=== PATIENT | male | born 1955 | race Caucasian/White ===

== ENCOUNTER 2018-04-12 10:38 | Observation (INO) ==
--- NOTE | 2018-04-12 11:01 | Emergency Department Note ---
ED Disposition Clinical Impression: Near syncope, Toe fracture, left, Chest pain Disposition: Admitted as Observation Condition on Discharge: Good Instructions: DI for Syncope in Adults (Fainting), DI for Syncope in Children ( Fainting) Referrals: Chencho Clarke MD [Primary Care Provider] - - Critical Care Critical Care Time: No Attestation: On , the high probability of a clinically significant, sudden or life threatening deterioration of the following system(s) required my full and direct attention, intervention and personal management. The time I documented below is in addition to time spent performing reported procedures but includes the following listed in this critical care notation. Medical Decision Making - Medical Records MR Comment: patient with chest pain and near syncope. frequent pacs. admit, rule out. ekg monitor tech. ddimer normal. cxr, ct head nad per radiology, fx toe per radiology, call out to k[facility]al for [facility] for admission. - Jose Inquiry Pt receiving controlled substance: No Vital Signs: 04/12/18 11:06 Temperature 97.8 F Temperature Source Temporal Artery Scan Respiratory Rate 18 Blood Pressure [Right Arm] 137/79 Blood Pressure Mean [Right Arm] 98 Blood Pressure Source [Right Arm] Automatic Cuff Blood Pressure Position [Right Arm] Sitting 02 Sat by Pulse Oximetry 100 Oxygen Delivery Method Room Air - Lab Data Lab Results 04/12/18 11:00: WBC 3.5 L, RBC 2.95 L, Hgb 11.8 L, Hct 36.8 L, MCV 124.7 H, MCH 40.1 H*, MCHC 32.2, RDW 15.5, Plt Count 179, MPV 8.0, Neut % (Auto) 44.5, Lymph % (Auto) 44.9, [place] % (Auto) 4.3, Eos % (Auto) 5.8, Baso % (Auto) 0.6, Neut # ( Auto) 1.6 L, Lymph # (Auto) 1.6, [place] # (Auto) 0.2, Eos # (Auto) 0.2, Baso # ( Auto) 0.0 04/12/18 11:00: Sodium 144, Potassium 4.0, Chloride 108 H, Carbon Dioxide 28, Anion Gap 8.2, BUN 18, Creatinine 1.00, Estimated Creat Clear 76, Estimated GFR 76, Est GFR ( Amer) 92, Glucose 125 H, Fasting Glucose 125 H, Troponin I < 0.02 04/12/18 11:00: D-Dimer 245 04/12/18 11:00: Total Bilirubin 0.7, Direct Bilirubin 0.2, Indirect Bilirubin 0.5, AST 24, ALT 25, Alkaline Phosphatase 63, Total Protein 7.1, Albumin 3.9 04/12/18 11:00: Lipase 52 L Result diagrams: 04/12/18 11:00 04/12/18 11:00 Orders (Tests/Meds): ORDERS Category Date Time Status Urinalysis and Microscopic Stat Lab 04/12/18 10:51 Ordered - ECG Data Tracing #1 I reviewed this ECG and interpreted as documented below: (ER EKG read by myself shows normal sinus rhythm rate of 74, normal axis, pac, no QT prolongation, nonspecific EKG) General Adult HPI - General Chief complaint: Chest Pain Stated complaint: soa Time Seen by Provider: 04/12/18 10:54 - History of Present Illness HPI narrative: Patient states onset at 9 AM he had chest tightness sweating shortness of breath and lightheadedness and near syncopal episode he denied any falls or head trauma he denies any chest pain now. No complaint of headache nausea or vomiting or fevers or chills no cough. He also states that he dropped an object on his left great toe 2 weeks ago but did not get it checked out and he thinks his toes may be broken. Has moderate achy pain there worse with ambulation no radiation - Related Data Allergies Allergy/AdvReac Type Severity Reaction Status Date / Time INGREDIENT: NO KNOWN - NO Allergy Unknown Uncoded 10/28/17 14:52 KNOWN DRUG ALLERGY [facility] History I have reviewed the patient's past medical history: Yes ROS Obtained: Yes All systems reviewed & no additional complaints Physical Exam General Appearance: Nontoxic Head: Normocephalic, without obvious abnormality, atraumatic. Eyes: conjunctiva/corneas clear ENT: Mucous membranes moist. Neck: No jugular venous distention. Cardiac: regular rate and rhythm Lungs: rhonchi to auscultation bilaterally Abdomen: Nontender, Nondistended, positive bowel sounds, no rebound : No CVA tenderness Extremities: no edema Musculoskeletal: No chest wall tenderness Left foot has tenderness at the second and first toes and some ecchymosis of the second and first some bilateral calf tenderness Skin: No rashes or lesions to exposed skin. Neurologic: Alert. No gross focal deficits Psychiatric: Normal affect - General General appearance: alert - Respiratory Respiratory exam: Present: normal lung sounds bilaterally - Cardiovascular Cardiovascular exam: Present: regular rate - Neurological Exam Neurological exam: Present: alert
[2018-04-12 11:08] LABS: Basophils % 0.6 % (0.1-2.0); Eosinophils # 0.2 K/mm3 (0.0-0.4); Eosinophils % 5.8 % (0.1-12.0); Hematocrit 36.8 % (42.0-52.0); Hemoglobin 11.8 g/dL (14.1-18.0); Lymphocytes # 1.6 K/mm3 (0.7-4.5); Lymphocytes % 44.9 K/mm3 (10-50); Mean Corpuscular HGB Conc 32.2 g/dL (31.8-35.4); Mean Corpuscular Volume 124.7 fl (80-94); Monocytes # 0.2 K/mm3 (0.1-1.0); Monocytes % 4.3 % (1.7-9.3); Neutrophils # 1.6 K/mm3 (1.8-7.8); Neutrophils % 44.5 % (37.0-80.0); Platelet Count 179 K/mm3 (142-424); Red Blood Count 2.95 M/mm3 (4.60-6.20); Red Cell Distribution Width 15.5 % (11.5-17.5); White Blood Count 3.5 K/mm3 (4.8-10.8)
[2018-04-12 11:15] LABS: Mean Corpuscular Hemoglobin 40.1 pg (27.0-31.2)
[2018-04-12 11:20] LABS: Sodium 144 mmol/L (136-145)
[2018-04-12 11:21] LABS: Anion Gap 8.2 mEq/L (5-15); Blood Urea Nitrogen 18 mg/dL (7-18); Carbon Dioxide 28 mmol/L (21.0-32.0); Chloride 108 mmol/L (98-107); Glucose 125 mg/dL (74-106); Glucose,Fasting 125 mg/dL (60-105)
[2018-04-12 11:24] LABS: Albumin Level 3.9 gm/dL (3.4-5.0); Bilirubin,Direct 0.2 mg/dL (0.0-0.2); Bilirubin,Indirect 0.5 mg/dL (0.0-0.9); Bilirubin,Total 0.7 mg/dL (0.2-1.0); Total Protein,Serum 7.1 gm/dL (6.4-8.2)
--- NOTE | 2018-04-12 16:44 | Progress Note ---
Internal Medicine - PN: Subj *Date: 04/12/18 *Time: 16:39 Interval history: This 62-year-old white male with known coronary artery disease and peripheral vascular disease had a near syncopal episode this morning. He started feeling faint about 830 this morning while he was visiting at a friend's house. He did not pass out. He felt that it might be from a rhythm problem. His daughter checked his heart rhythm about 9 AM and found it to be irregular. Patient presented in the emergency room. He did have some PACs in the emergency room. Cardiac enzymes were negative. His director facilities maintenance is Dr. Elba Ramey. He has had multiple cardiac catheterizations, he thinks perhaps 10 to 12. He states that he has had 2 coronary artery stents. He has had myocardial infarction in 1991 in 2006. Quit smoking in 1996. He does have peripheral vascular disease and had atherectomy of his left leg this year. He takes aspirin Crestor and Plavix. He had surgery for tic douloureux in the . Incidentally he had an injury recently to his left great toe and x-ray in the emergency room revealed a fracture. Exam Vital signs and Labs for Last 24 Hours: Temp Pulse Resp BP Pulse Ox 98.0 F 63 18 103/70 100 04/12/18 14:26 04/12/18 14:26 04/12/18 14:26 04/12/18 14:26 04/12/18 14:47 Laboratory Results - last 24 hr 04/12/18 11:00: WBC 3.5 L, RBC 2.95 L, Hgb 11.8 L, Hct 36.8 L, MCV 124.7 H, MCH 40.1 H*, MCHC 32.2, RDW 15.5, Plt Count 179, MPV 8.0, Neut % (Auto) 44.5, Lymph % (Auto) 44.9, [place] % (Auto) 4.3, Eos % (Auto) 5.8, Baso % (Auto) 0.6, Neut # ( Auto) 1.6 L, Lymph # (Auto) 1.6, [place] # (Auto) 0.2, Eos # (Auto) 0.2, Baso # ( Auto) 0.0 04/12/18 11:00: Sodium 144, Potassium 4.0, Chloride 108 H, Carbon Dioxide 28, Anion Gap 8.2, BUN 18, Creatinine 1.00, Estimated Creat Clear 76, Estimated GFR 76, Est GFR ( Amer) 92, Glucose 125 H, Fasting Glucose 125 H, Troponin I < 0.02 04/12/18 11:00: D-Dimer 245 04/12/18 11:00: Total Bilirubin 0.7, Direct Bilirubin 0.2, Indirect Bilirubin 0.5, AST 24, ALT 25, Alkaline Phosphatase 63, Total Protein 7.1, Albumin 3.9 04/12/18 11:00: Lipase 52 L I & O for Last 24 hours: Intake & Output 04/10/18 04/11/18 04/12/18 04/13/18 11:59 11:59 11:59 11:59 Weight 150 lb 163 lb 5 oz - Constitutional no acute distress - *Routine Respiratory Exam Present: decreased breath sounds - *Routine Cardiovascular Exam Present: RRR, murmur (2/6 at the left sternal border) - *Routine Abdominal Exam Present: soft. Absent: tenderness - *Routine Extremities Exam Absent: edema Comments: Discoloration and tenderness of the left great toe. See x-ray report. - *Routine Neurological Exam Present: alert, oriented X3 Assessment and Plan (1) Near syncope Current visit: Yes Status: Acute Category: Medical Code(s): R55 - Syncope and collapse (2) Cardiac dysrhythmia, unspecified Current visit: Yes Status: Acute Category: Medical Code(s): I49.9 - Cardiac arrhythmia, unspecified (3) Peripheral vascular disease Current visit: Yes Status: Acute Category: Medical Code(s): I73.9 - Peripheral vascular disease, unspecified (4) Coronary artery disease Current visit: Yes Status: Acute Category: Medical Code(s): I25.10 - Atherosclerotic heart disease of [place] coronary artery without angina pectoris (5) History of coronary artery stent placement Current visit: Yes Status: Acute Category: Surgical Code(s): Z95.5 - Presence of coronary angioplasty implant and graft (6) Toe fracture, left Current visit: Yes Status: Acute Category: Medical Code(s): S92.912A - Unspecified fracture of left toe(s), initial encounter for closed fracture - Assessment and plan all Dx Assessment and Plan for all problems:: Monitor. Echocardiogram in the morning.
[2018-04-12 18:00] LABS: Microscopic, Urine URINE MICROSCOPIC (MICROSCOPIC)
[2018-04-12 18:01] LABS: Appearance,Urine CLEAR (Clear); Bilirubin,Urine Negative (Negative); Blood, Urine Negative (Negative); Color,Urine YELLOW (Yellow); Glucose,Urine (UA) Negative (Negative); Ketones,Urine Negative (Negative); Leukocyte Esterase,Urine Negative (Negative); Protein,Urine Negative (Negative)
[2018-04-12 18:04] LABS: Amorphous Sediment,Urine Trace /lpf
--- NOTE | 2018-04-13 07:27 | Pharmacy Consult Notes ---
[facility] Pharmacy VTE Monitoring - Patient Demographics Admission date: 04/12/18 Report Date: 04/13/18 Time: 07:27 Allergies/Adverse Reactions: Patient Allergies No Known Allergies Allergy (Unverified 04/12/18 13:54) Height: 1.78 m Weight: 74.077 kg Patient Problems: Current Active Problems Near syncope (Acute) Toe fracture, left (Acute) Chest pain (Acute) Cardiac dysrhythmia, unspecified (Acute) Peripheral vascular disease (Acute) Coronary artery disease (Acute) History of coronary artery stent placement (Acute) - VTE Risk Labs: VTE Related Lab Results Hgb 11.8 g/dL (14.1-18.0) L 04/12/18 11:00 Hct 36.8 % (42.0-52.0) L 04/12/18 11:00 Plt Count 179 K/mm3 (142-424) 04/12/18 11:00 BUN 18 mg/dL (7-18) 04/12/18 11:00 Creatinine 1.00 mg/dL (0.70-1.30) 04/12/18 11:00 Estimated Creat Clear 76 mL/min (0-300) 04/12/18 11:00 VTE Score: 3 VTE Risk Level: Low Risk - Prophylaxis VTE Prophylaxis Ordered?: Yes Types of VTE Prophylaxis: TEDS Knee High Location of Applied Device: Bilateral Lower Extremeties - VTE Diagnosis Confirmed Treatment or plan recommended: Continue Current Treatment
--- NOTE | 2018-04-13 09:17 | History & Physical Report ---
*Admission Date: 04/12/18 <MorganNehaDiaen 04/13/18 09:17> *Chief complaint: Near syncope <MorganNehaDiane 04/13/18 09:35> *History of present illness: Mr. Gutierrez is a 62-year-old white male with known coronary artery disease and peripheral vascular disease experienced a near syncopal episode yesterday morning. He started feeling faint about 830 in the morning while he was visiting at a friend's house. He just started using some snuff. He did not pass out. He felt that it might be from a rhythm problem. His daughter checked his heart rhythm about 9 AM and found it to be irregular. Patient presented in the emergency room. He did have some PACs in the emergency room. Cardiac enzymes were negative. His engineering mgr is Dr. Elba Ramey. He has had multiple cardiac catheterizations, he thinks perhaps to 12. He states that he has had 2 coronary artery stents. He has had myocardial infarction in 1991 in 2006. Quit smoking in 1996. He does have peripheral vascular disease and had atherectomy of his left leg this year. He takes aspirin Crestor and Plavix. This a.m. patient denies chest pain and states he did not have chest pain yesterday. He also denies shortness of breath. He thinks the episode is from using the snuff. <Diane Morgan 04/13/18 09:35> [facility] History Medical History: Reports:: Arrhythmia, Atherosclerotic Heart Disease, Coronary Artery Disease, Hyperlipidemia, Myocardial Infarction, Palpitations, Peripheral Vascular Disease Denies:: Cancer, Diabetes Mellitus Type 1, Diabetes Mellitus Type 2, Gastroesophageal Reflux Disease(GERD), MRSA <Diane Morgan 04/13/18 09:35> Other Medical History: Reports: Cataracts, Sinus Problems <Diane Morgan 02/25 09:17> Other Surgeries: Yes: Cardiac Catheterization <Diane Morgan 04/13/18 09:17> Amputation: No <Diane Morgan 04/13/18 09:17> Fractures: Yes <Diane Morgan 04/13/18 09:17> Comment: Directional atherectomy left ascending 1991; coronary artery stent 1996 ; face neuralgia ; left atherectomy left leg December 2017 <Diane Morgan 04/13/18 09:35> - *Social History Educational Level: Completed High School <Neha Morganhy 04/13/18 09:17> Smoking Status: Former smoker <Neha Morganhy 04/13/18 09:17> Tobacco Type: cigarettes, smokeless tobacco <Neha Morganhy 04/13/18 09:17> Smoking End Date: Continues to dip snuff <EddieDiane 04/13/18 09:35> Alcohol Intake: never <Neha Morganhy 04/13/18 09:17> Occupational Status: retired <Neha Morganhy 04/13/18 09:17> Housing: house <Neha Morganhy 04/13/18 09:17> Household Members: spouse <EddieDiane 04/13/18 09:17> - Psychiatric History Expresses thoughts of harming self/others: None <Neha Morganhy 04/13/18 09: 17> Suicide Plan Description: No Plan <Neha Morganhy 04/13/18 09:17> *Family Hx:: Cancer, Coronary Artery Disease, Diabetes, Heart Attack, Hyperlipidemia, Hypertension, Stroke <Neha Morganhy 04/13/18 09:17> Review of Systems - Constitutional Denies body ache(s), Denies fever(s), Denies headache(s) <MorganDiane 02/25 09:35> - ENT Denies ear pain, Denies sore throat <MorganDiane 04/13/18 09:35> - *Cardiovascular Reports leg pain with activity, Reports irregular heart rhythm, Reports leg swelling, Denies chest pain, Denies shortness of breath <MorganDiane 04/13 09:35> - *Respiratory Denies chest congestion, Denies cough, Denies shortness of breath, Denies coughing up blood <MorganDiane 04/13/18 09:35> - *Gastrointestinal Denies abdominal pain, Denies change in bowel habits, Denies heartburn, Denies vomiting blood, Denies nausea, Denies vomiting <Morgan,Diane 04/13/18 09:35 > - *Genitourinary Denies difficulty urinating <EddieDiane 04/13/18 09:35> - *Musculoskeletal Reports muscle cramps, Reports tingling, Denies joint pain <Diane Morgan - 09:35> - *Neurologic Reports dizziness, Reports numbness (And legs), Reports tingling/numbness/ burning sensations (Legs), Denies headache(s) <Diane Morgan - 04/13/18 09:35> Comments: Near-syncope <Diane Morgan - 04/13/18 09:35> Meds Home Medications Medication Instructions Recorded Confirmed Type Aspirin [Aspir 81] 81 mg PO DAILY 04/12/18 04/12/18 History Clopidogrel Bisulfate [Plavix 75mg 75 mg PO DAILY 04/12/18 04/12/18 History Tab] Rosuvastatin Calcium [Crestor] 20 mg PO DAILY 04/12/18 04/12/18 History <Chencho Clarke - 04/13/18 10:21> Allergies Allergy/AdvReac Type Severity Reaction Status Date / Time No Known Allergies Allergy Unverified 04/12/18 13:54 <Chencho Clarke - 04/13/18 10:21> Exam Vital signs and Labs for Last 24 Hours: Temp Pulse Resp BP Pulse Ox 98.6 F 56 L 16 108/64 99 04/13/18 08:09 04/13/18 08:09 04/13/18 08:09 04/13/18 08:09 04/13/18 08:09 Laboratory Results - last 24 hr 04/12/18 11:00: WBC 3.5 L, RBC 2.95 L, Hgb 11.8 L, Hct 36.8 L, MCV 124.7 H, MCH 40.1 H*, MCHC 32.2, RDW 15.5, Plt Count 179, MPV 8.0, Neut % (Auto) 44.5, Lymph % (Auto) 44.9, Iron % (Auto) 4.3, Eos % (Auto) 5.8, Baso % (Auto) 0.6, Neut # ( Auto) 1.6 L, Lymph # (Auto) 1.6, Iron # (Auto) 0.2, Eos # (Auto) 0.2, Baso # ( Auto) 0.0 04/12/18 11:00: Sodium 144, Potassium 4.0, Chloride 108 H, Carbon Dioxide 28, Anion Gap 8.2, BUN 18, Creatinine 1.00, Estimated Creat Clear 76, Estimated GFR 76, Est GFR ( Amer) 92, Glucose 125 H, Fasting Glucose 125 H, Troponin I < 0.02 04/12/18 11:00: D-Dimer 245 04/12/18 11:00: Total Bilirubin 0.7, Direct Bilirubin 0.2, Indirect Bilirubin 0.5, AST 24, ALT 25, Alkaline Phosphatase 63, Total Protein 7.1, Albumin 3.9 04/12/18 11:00: Lipase 52 L 04/12/18 17:50: Urine Color Yellow, Urine Appearance Clear, Urine pH 7.0, Ur Specific [place] 1.020, Urine Protein Negative, Urine Glucose (UA) Negative, Urine Ketones Negative, Urine Blood Negative, Urine Nitrate Negative, Urine Bilirubin Negative, Urine Urobilinogen 1.0, Ur Leukocyte Esterase Negative, Ur Squamous Epith Cells 3-5, Amorphous Sediment Trace <[place],Chencho - 04/13/18 10:21> Temp Pulse Resp BP Pulse Ox 98.6 F 56 L 16 108/64 99 04/13/18 08:09 04/13/18 08:09 04/13/18 08:09 04/13/18 08:09 04/13/18 08:09 Laboratory Results - last 24 hr 04/12/18 11:00: WBC 3.5 L, RBC 2.95 L, Hgb 11.8 L, Hct 36.8 L, MCV 124.7 H, MCH 40.1 H*, MCHC 32.2, RDW 15.5, Plt Count 179, MPV 8.0, Neut % (Auto) 44.5, Lymph % (Auto) 44.9, Iron % (Auto) 4.3, Eos % (Auto) 5.8, Baso % (Auto) 0.6, Neut # ( Auto) 1.6 L, Lymph # (Auto) 1.6, Iron # (Auto) 0.2, Eos # (Auto) 0.2, Baso # ( Auto) 0.0 04/12/18 11:00: Sodium 144, Potassium 4.0, Chloride 108 H, Carbon Dioxide 28, Anion Gap 8.2, BUN 18, Creatinine 1.00, Estimated Creat Clear 76, Estimated GFR 76, Est GFR ( Amer) 92, Glucose 125 H, Fasting Glucose 125 H, Troponin I < 0.02 04/12/18 11:00: D-Dimer 245 04/12/18 11:00: Total Bilirubin 0.7, Direct Bilirubin 0.2, Indirect Bilirubin 0.5, AST 24, ALT 25, Alkaline Phosphatase 63, Total Protein 7.1, Albumin 3.9 04/12/18 11:00: Lipase 52 L 04/12/18 17:50: Urine Color Yellow, Urine Appearance Clear, Urine pH 7.0, Ur Specific [place] 1.020, Urine Protein Negative, Urine Glucose (UA) Negative, Urine Ketones Negative, Urine Blood Negative, Urine Nitrate Negative, Urine Bilirubin Negative, Urine Urobilinogen 1.0, Ur Leukocyte Esterase Negative, Ur Squamous Epith Cells 3-5, Amorphous Sediment Trace <Diane Morgan - 04/13/18 09:17> I & O for Last 24 hours: Intake & Output 04/10/18 04/11/18 04/12/18 04/13/18 11:59 11:59 11:59 11:59 Intake Total 1537 / 1537 Output Total 300 / 300 Balance 1237 / 1237 Weight 150 lb 163 lb 5 oz <[place],Chencho - 04/13/18 10:21> Intake & Output 04/10/18 04/11/18 04/12/18 04/13/18 11:59 11:59 11:59 11:59 Intake Total 1537 / 1537 Output Total 300 / 300 Balance 1237 / 1237 Weight 150 lb 163 lb 5 oz <Diane Morgan - 04/13/18 09:17> Radiology Reports for the Last 24 Hours: 04/12/2018 chest x-ray IMPRESSION: No acute finding. 04/12/2018 CT of the head IMPRESSION: 1. No acute intracranial findings. 2. Postsurgical changes with right occipital craniotomy with mild prominence of the CSF space lateral to the right cerebellar hemisphere nonspecific 04/12/2018 x-ray of the left foot. IMPRESSION: Mildly displaced transverse fracture mid shaft proximal phalanx great toe <Diane Morgan - 04/13/18 09:35> - Constitutional no acute distress <Diane Morgan 04/13/18 09:35> - *Routine HEENT Exam Head: Present: normocephalic, atraumatic <[facility] 04/13/18 09:35> Eye: Present: PERRL. Absent: conjunctival icterus, scleral injection <[facility] 04/13/18 09:35> ENT: Present: mucous membranes moist, oropharynx clear. Absent: dentition normal <[facility] 04/13/18 09:35> - *Routine Neck Exam Present: supple. Absent: carotid bruit, lymphadenopathy, thyromegaly <[facility] 04/13/18 09:35> - *Routine Respiratory Exam Present: CTA bilaterally (Anteriorly and posteriorly) <[facility] 09:35> - *Routine Cardiovascular Exam Present: RRR (Monitor showing sinus bradycardia) <[facility] 04/13/18 09: 35> - *Routine Abdominal Exam Present: soft, normoactive bowel sounds. Absent: tenderness, distended, organomegaly <[facility] 04/13/18 09:35> - *Routine Extremities Exam Present: full ROM, pulses intact, calf tenderness. Absent: edema, palpable cord <[facility] 04/13/18 09:35> Comments: Tenderness bilateral inner thighs <[facility] 04/13/18 09:35> - *Routine Neurological Exam Present: alert, oriented X3 <[facility] 04/13/18 09:35> H&P: Result - Labs Labs: Short CBC 04/12/18 Range/Units 11:00 WBC 3.5 L (4.8-10.8) K/mm3 Hgb 11.8 L (14.1-18.0) g/dL Hct 36.8 L (42.0-52.0) % Plt Count 179 (142-424) K/mm3 BMP 04/12/18 11:00 Sodium 144 Potassium 4.0 Chloride 108 H Carbon Dioxide 28 BUN 18 Creatinine 1.00 Glucose 125 H Cardiac Enzymes 04/12/18 Range/Units 11:00 Troponin I < 0.02 (0.00-0.06) ng/ml Liver Function 04/12/18 Range/Units 11:00 Total Bilirubin 0.7 (0.2-1.0) mg/dL Direct Bilirubin 0.2 (0.0-0.2) mg/dL AST 24 (15-37) U/L ALT 25 (12-78) U/L Alkaline Phosphatase 63 (46-116) U/L Albumin 3.9 (3.4-5.0) gm/dL Urine 04/12/18 Range/Units 17:50 Urine Color Yellow (Yellow) Urine Appearance Clear (Clear) Urine pH 7.0 (5.0-8.5) Ur Specific [place] 1.020 (1.005-1.030) Urine Protein Negative (Negative) Urine Glucose (UA) Negative (Negative) <TriciaChencho - 04/13/18 10:21> Short CBC 04/12/18 Range/Units 11:00 WBC 3.5 L (4.8-10.8) K/mm3 Hgb 11.8 L (14.1-18.0) g/dL Hct 36.8 L (42.0-52.0) % Plt Count 179 (142-424) K/mm3 BMP 04/12/18 11:00 Sodium 144 Potassium 4.0 Chloride 108 H Carbon Dioxide 28 BUN 18 Creatinine 1.00 Glucose 125 H Cardiac Enzymes 04/12/18 Range/Units 11:00 Troponin I < 0.02 (0.00-0.06) ng/ml Liver Function 04/12/18 Range/Units 11:00 Total Bilirubin 0.7 (0.2-1.0) mg/dL Direct Bilirubin 0.2 (0.0-0.2) mg/dL AST 24 (15-37) U/L ALT 25 (12-78) U/L Alkaline Phosphatase 63 (46-116) U/L Albumin 3.9 (3.4-5.0) gm/dL Urine 04/12/18 Range/Units 17:50 Urine Color Yellow (Yellow) Urine Appearance Clear (Clear) Urine pH 7.0 (5.0-8.5) Ur Specific [place] 1.020 (1.005-1.030) Urine Protein Negative (Negative) Urine Glucose (UA) Negative (Negative) <Diane Morgan - 04/13/18 09:17> Assessment and Plan (1) Near syncope Current visit: Yes Status: Acute Category: Medical Code(s): R55 - Syncope and collapse (2) Cardiac dysrhythmia, unspecified Current visit: Yes Status: Acute Category: Medical Code(s): I49.9 - Cardiac arrhythmia, unspecified (3) Peripheral vascular disease Current visit: Yes Status: Acute Category: Medical Code(s): I73.9 - Peripheral vascular disease, unspecified (4) Coronary artery disease Current visit: Yes Status: Acute Category: Medical Code(s): I25.10 - Atherosclerotic heart disease of [place] coronary artery without angina pectoris (5) History of coronary artery stent placement Current visit: Yes Status: Acute Category: Surgical Code(s): Z95.5 - Presence of coronary angioplasty implant and graft (6) Toe fracture, left Current visit: Yes Status: Acute Category: Medical Code(s): S92.912A - Unspecified fracture of left toe(s), initial encounter for closed fracture (7) Bilateral leg pain Current visit: Yes Status: Acute Category: Medical Code(s): M79.604 - Pain in right leg; M79.605 - Pain in left leg (8) Bilateral leg paresthesia Current visit: Yes Status: Acute Category: Medical Code(s): R20.2 - Paresthesia of skin <Chencho Clarke - 04/13/18 10:21> (1) Near syncope Current visit: Yes Status: Acute Category: Medical Code(s): R55 - Syncope and collapse (2) Cardiac dysrhythmia, unspecified Current visit: Yes Status: Acute Category: Medical Code(s): I49.9 - Cardiac arrhythmia, unspecified (3) Peripheral vascular disease Current visit: Yes Status: Acute Category: Medical Code(s): I73.9 - Peripheral vascular disease, unspecified (4) Coronary artery disease Current visit: Yes Status: Acute Category: Medical Code(s): I25.10 - Atherosclerotic heart disease of [place] coronary artery without angina pectoris (5) History of coronary artery stent placement Current visit: Yes Status: Acute Category: Surgical Code(s): Z95.5 - Presence of coronary angioplasty implant and graft (6) Toe fracture, left Current visit: Yes Status: Acute Category: Medical Code(s): S92.912A - Unspecified fracture of left toe(s), initial encounter for closed fracture (7) Bilateral leg pain Current visit: Yes Status: Acute Category: Medical Code(s): M79.604 - Pain in right leg; M79.605 - Pain in left leg (8) Bilateral leg paresthesia Current visit: Yes Status: Acute Category: Medical Code(s): R20.2 - Paresthesia of skin <Diane Morgan - 04/13/18 09:17> - Assessment and plan all Dx Assessment and Plan for all problems:: Saw patient, agree with above note. <Chencho Clarke - 04/13/18 10:21> Bilateral venous Doppler studies. KULWINDER hidalgo. Plavix restarted. Also have an echo today. Continue with cardiac monitoring. <Diane Morgan - 04/13/18 09:35>
--- NOTE | 2018-04-13 10:32 | Non-Invasive Vascular Report ---
"Venous Exam Indications: PVD 433.9. 782.3 Edema. IMPRESSIONS 1. There is no evidence of significant Reflux. 2. No evidence of deep or superficial vein thrombosis involving the right lower extremity and left lower extremity History: Bilateral lower extremity pain. Risk factors: Lifelong nonsmoker. Hypertension. Complete lower extremity venous duplex evaluation. Doppler flow study including spectral analysis, color and ac scale imaging. Location: Bedside. Patient status: Inpatient. Tables: Venous flow and imaging: + +-------+ + |Location |Overall|Flow properties | + +-------+ + |Right common femoral |Patent |Normal phasicity; spontaneous; | | | |normal augmentation; compressible| + +-------+ + |Right saphenofemoral junction|Patent |Compressible | + +-------+ + |Right profunda femoral |Patent |Compressible | + +-------+ + |Right femoral |Patent |Normal phasicity; spontaneous; | | | |normal augmentation; | | | |compressible; no reflux | + +-------+ + |Right greater saphenous |Patent |Normal phasicity; spontaneous; | | | |normal augmentation; compressible| + +-------+ + |Right popliteal |Patent |Normal phasicity; spontaneous; | | | |normal augmentation; compressible| + +-------+ + |Right posterior tibial |Patent |Compressible | + +-------+ + |Right peroneal |Patent |Compressible | + +-------+ + |Right gastrocnemius |Patent |Compressible | + +-------+ + |Right soleal |Patent |Compressible | + +-------+ + |Left common femoral |Patent |Normal phasicity; spontaneous; | | | |normal augmentation; compressible| + +-------+ + |Left saphenofemoral junction |Patent |Compressible | + +-------+ + |Left profunda femoral |Patent |Compressible | + +-------+ + |Left femoral |Patent |Normal phasicity; spontaneous; | | | |normal augmentation; compressible| + +-------+ + |Left greater saphenous |Patent |Normal phasicity; spontaneous; | | | |normal augmentation; compressible| + +-------+ + |Left popliteal |Patent |Normal phasicity; spontaneous; | | | |normal augmentation; compressible| + +-------+ + |Left posterior tibial |Patent |Compressible | + +-------+ + |Left peroneal |Patent |Compressible | + +-------+ + |Left gastrocnemius |Patent |Compressible | + +-------+ + |Left soleal |Patent |Compressible | + +-------+ + (Report amended ) Electronically signed by: Dipak Alcocer [id number]"
[2018-04-13 16:59] VITALS: BP 105/58
--- NOTE | 2018-04-13 22:32 | Discharge Summary ---
General - General Admission date:: 04/12/18 Discharge date: 04/13/18 HPI HPI: Mr. Gutierrez is a 62-year-old white male with known coronary artery disease and peripheral vascular disease experienced a near syncopal episode yesterday morning. He started feeling faint about 830 in the morning while he was visiting at a friend's house. He just started using some snuff. He did not pass out. He felt that it might be from a rhythm problem. His daughter checked his heart rhythm about 9 AM and found it to be irregular. Patient presented in the emergency room. He did have some PACs in the emergency room. Cardiac enzymes were negative. 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 He has had multiple cardiac catheterizations, he thinks perhaps to 12. He states that he has had 2 coronary artery stents. He has had myocardial infarction in 1991 in 2006. Quit smoking in 1996. He does have peripheral vascular disease and had atherectomy of his left leg this year. He takes aspirin Crestor and Plavix. This a.m. patient denies chest pain and states he did not have chest pain yesterday. He also denies shortness of breath. He thinks the episode is from using the snuff. Hospital Course Hospital Course: X-ray of the left foot showed a mildly displaced transverse fracture mid shaft proximal phalanx great toe. His head CT and CXR showed nothing acute. Bilateral venous Doppler studies were ordered. KULWINDER hose were placed. Plavix was restarted. An echo was ordered and the patient continued with cardiac monitoring. He did well throughout the day. His venous doppler of the legs was normal and his ECHO normal. He was stable to be discharged home with an outpatient cardiology f/u. Objective Vital signs: Temp Pulse Resp BP Pulse Ox 97.9 F 60 18 105/58 98 04/13/18 16:00 04/13/18 18:29 04/13/18 16:00 04/13/18 16:00 04/13/18 16:00 Narrative: - Constitutional no acute distress - *Routine HEENT Exam Head: Present: normocephalic, atraumatic Eye: Present: PERRL. Absent: conjunctival icterus, scleral injection ENT: Present: mucous membranes moist, oropharynx clear. Absent: dentition normal - *Routine Neck Exam Present: supple. Absent: carotid bruit, lymphadenopathy, thyromegaly - *Routine Respiratory Exam Present: CTA bilaterally (Anteriorly and posteriorly) - *Routine Cardiovascular Exam Present: RRR (Monitor showing sinus bradycardia) - *Routine Abdominal Exam Present: soft, normoactive bowel sounds. Absent: tenderness, distended, organomegaly - *Routine Extremities Exam Present: full ROM, pulses intact, calf tenderness. Absent: edema, palpable cord Comments: Tenderness bilateral inner thighs - *Routine Neurological Exam Present: alert, oriented X3 DS: Diagnosis - Discharge Diagnosis (1) Near syncope Status: Acute (2) Cardiac dysrhythmia, unspecified Status: Acute (3) Peripheral vascular disease Status: Acute (4) Coronary artery disease Status: Acute (5) History of coronary artery stent placement Status: Acute (6) Toe fracture, left Status: Acute (7) Bilateral leg pain Status: Acute (8) Bilateral leg paresthesia Status: Acute Discharge Plan - Patient Discharge Instructions ACTIVITY: Continue current activity DIET: continue same diet Patient Instructions: DI for Syncope in Adults (Fainting), DI for Toe Fracture - Follow up Plan Follow up with: Chencho Clarke MD [Primary Care Provider] - 04/22/18 Elba Ramey [Referring] - 1 month Disposition: Home, Self-Nursing Home Medications: Home Medications Medication Instructions Recorded Confirmed Type Aspirin [Aspir 81] 81 mg PO DAILY 04/12/18 04/12/18 History Clopidogrel Bisulfate [Plavix 75mg 75 mg PO DAILY 04/12/18 04/12/18 History Tab] Rosuvastatin Calcium [Crestor] 20 mg PO DAILY 04/12/18 04/12/18 History Prescriptions/Medication Reconciliation: Continue Clopidogrel Bisulfate [Plavix 75mg Tab] 75 mg PO DAILY Aspirin [Aspir 81] 81 mg PO DAILY Rosuvastatin Calcium [Crestor] 20 mg PO DAILY
== END 2018-04-13 18:15 | disposition home or self-care (01) ==
LOC: ER 10:38 → 2ND 10:38
PROVIDERS: ADMIT Family Medicine; ATTEND Family Medicine

== ENCOUNTER → 2018-06-25 12:08 | Outpatient (CLI) | payer BC, SELFPAY ==
--- NOTE | 2018-06-25 12:15 | XR_ITS ---
XR hand RT min 3V HISTORY: ITS.REASON: POLYARTHRALGIA ORDERING PHYSICIAN: Chencho Clarke MD PATIENT AGE: 62 years COMPARISON: None FINDINGS: No fracture or dislocation. No lytic or blastic change. There is normal mineralization.. The joint spaces are well-preserved. No significant degenerative/arthritic changes. No erosive changes evident.. There are minimal hypertrophic changes along the dorsal aspect of the DIP of the second, third, fourth, and fifth digits IMPRESSION: Minimal osteoarthritic changes of the DIPs of the second through fifth digits
--- NOTE | 2018-06-25 12:15 | XR_ITS ---
XR foot RT min 3V HISTORY: Pain ITS.REASON: POLYARTHRALGIA ORDERING PHYSICIAN: Chencho Clarke MD PATIENT AGE: 62 years COMPARISON: None FINDINGS: No fracture or dislocation. No lytic or blastic change. There is normal mineralization.. The joint spaces are well-preserved. No significant degenerative/arthritic changes. No erosive changes evident. IMPRESSION: Negative, no acute finding
--- NOTE | 2018-06-25 12:15 | XR_ITS ---
XR foot LT min 3V HISTORY: Pain ITS.REASON: POLYARTHRALGIA ORDERING PHYSICIAN: Chencho Clarke MD PATIENT AGE: 62 years COMPARISON: None FINDINGS: No fracture or dislocation. No lytic or blastic change. There is normal mineralization.. The joint spaces are well-preserved. No significant degenerative/arthritic changes. No erosive changes evident. IMPRESSION: Negative, no acute finding
--- NOTE | 2018-06-25 12:15 | XR_ITS ---
XR hand LT min 3V HISTORY: ITS.REASON: POLYARTHRALGIA ORDERING PHYSICIAN: Chencho Clarke MD PATIENT AGE: 62 years COMPARISON: None FINDINGS: No fracture or dislocation. No lytic or blastic change. There is normal mineralization.. The joint spaces are well-preserved. No significant degenerative/arthritic changes. No erosive changes evident.. Minimal hypertrophic changes along the dorsal aspect of the DIP of the second and fifth digits IMPRESSION: Minimal osteoarthritic change of the MP second and fifth digits
== END ==
PROVIDERS: PCP Family Medicine; Visit Provider Family Medicine
DX: M25.50 Pain in unspecified joint (principal)
CPT/HCPCS: 73130; 73630

== ENCOUNTER → 2020-05-22 16:11 | Outpatient (CLI) | payer BC, SELFPAY ==
--- NOTE | 2020-05-22 | XR_ITS ---
PROCEDURE: XR LUMBAR SPINE MIN 4V CLINICAL INDICATION: ACUTE LEFT SIDED LOW BACK PAIN WITHOUT SCIATICA COMPARISON: CXR CHEST(2 VIEWS-NOT PORTABLE) from 09/24/2015 FINDINGS: Minimal upper lumbar curvature convex right. No fracture or dislocation. There is mild degenerative disc disease at L3-L4. There is mild wedge configuration of T12 which had a similar appearance on a prior lateral chest radiograph. There are mildly prominent right lateral osteophytes at L1-L2 IMPRESSION: Mild degenerative changes, no acute fracture or other acute anomaly Dictated by: Dipak Alcocer MD 05/22/2020 16:51 Electronically signed by Dipak Alcocer MD in [place] 05/22/2020 16:51
== END ==
PROVIDERS: PCP Family Medicine; Visit Provider Family Medicine
DX: M54.5 Low back pain (principal)
CPT/HCPCS: 72110

== ENCOUNTER → 2021-04-12 07:59 | Outpatient (CLI) | payer BC, SELFPAY ==
[2021-04-12 08:59] LABS: Chloride 104 mmol/L (98-107); Potassium 4.4 mmoL/L (3.5-5.1); Sodium 138 mmol/L (136-145)
[2021-04-12 09:01] LABS: Alanine Aminotransferase 21 U/L (12-78); Aspartate Amino Transferase 32 U/L (17-59); Blood Urea Nitrogen 22 mg/dl (9-20); Estimated Glomerular Filt Rate 61 ml/min (>60); GFR (African American) 74 ML/MIN (>60)
[2021-04-12 09:02] LABS: Albumin Level 4.3 g/dl (3.5-5.0); Albumin/Globulin Ratio 1.3 (1.1-1.8); Alkaline Phosphatase 87 U/L (38-126); Anion Gap 12.4 mEq/L (5-15); Bilirubin,Total 0.6 mg/dl (0.2-1.3); Calcium 8.8 mg/dl (8.4-10.2); Carbon Dioxide 26 mmol/L (22.0-30.0); Chol/HDL Ratio 3.2 (1-3.5); Cholesterol 110 mg/dl (140-200); Globulin 3.4 g/dL (1.3-3.2); Glucose 126 mg/dl (74-100); HDL Cholesterol 34 mg/dl (40-60); Total Protein,Serum 7.7 g/dl (6.3-8.2); Triglycerides 166 mg/dl (30-150); VLDL Cholesterol 33 mg/dL (0-40)
== END ==
PROVIDERS: Visit Provider Nurse Practitioner Acute Care
DX: I25.10 Atherosclerotic heart disease of native coronary artery without angina pectoris (principal)
CPT/HCPCS: 36415; 80053; 80061

== ENCOUNTER → 2022-07-18 16:04 | Outpatient (CLI) | payer MEDICARE, BC, SELFPAY | PROVIDERS: PCP Family Medicine; Visit Provider Physician Assistant | DX: R06.09 Other forms of dyspnea (principal); D64.9 Anemia, unspecified | CPT/HCPCS: 36415; 86850 ==

== ENCOUNTER 2022-07-19 08:32 | Outpatient (CLI) | payer MEDICARE, BC, SELFPAY ==
[2022-07-19] VITALS (20 sets, daily range): BP systolic 92–127; BP diastolic 44–68; PULSE 53–70; RESP 18; TEMP 36.4–36.7; O2SAT 99–100; BMI 25.8
[2022-07-19 09:24] LABS: Occult Blood,Stool Negative (Negative)
[2022-07-19 09:36] LABS: Hematocrit 21.5 % (42.0-52.0); Hemoglobin 7.7 g/dL (14.1-18.0)
--- NOTE | 2022-07-19 10:05 | PC.NURSE ---
1005-collected labs via left upper arm picc line; will wait for results.
--- NOTE | 2022-07-19 10:25 | PC.NURSE ---
1025-per standing orders pt ok to d/c home and return on friday; hgb 12.2 and plt 199.
--- NOTE | 2022-07-19 14:35 | PC.NURSE ---
1435-called and talked to roxana lindsay new order for one time dose vitamin b 12 1000mcg im
[2022-07-19 15:06] LABS: Hemoglobin 9.9 g/dL (14.1-18.0)
== END 2022-07-19 10:25 | disposition home or self-care (01) ==
PROVIDERS: PCP Physician Assistant; Visit Provider Physician Assistant
DX: R06.09 Other forms of dyspnea (principal); D64.9 Anemia, unspecified
CPT/HCPCS: 36430; 82272; 85014; 85018; 96372; G0328; P9016

== ENCOUNTER → 2022-07-22 14:19 | Outpatient (CLI) | payer MEDICARE, BC, SELFPAY ==
--- NOTE | 2022-07-22 14:48 | CA_ITS ---
APPROVED REPORT EXAM: Comprehensive 2D, Doppler, and color-flow [facility] Education Director: Glenis Massey, RCS, RVS Ht: 5 ft 10 in Wt: 180lbs BSA: 2.00 BP: 127/80 mmHg Indications: anemia Hgb-9.9, SOA, ex-smoker, lethargy, CAD, ASCVD, PAD, palpitaions 2D Dimensions Aortic Root 2.77 cm LA Volume 42.20 mL Left Atrium 2.88 cm LA Volume Index 21.10 mL/m2 (M/F) 16-34 LVOT 2.04 cm (M/F) 1.5-2.5 M-Mode Dimensions RVDd 2.17 cm (0.9-2.6) LA Diam 3.01 cm (1.9-4.0) LVDd 4.42 cm (3.5-5.7) Ao Diam 2.98 cm (2.0-3.7) LVDs 3.08 cm (3.5-5.7) IVSd 1.04 cm (0.6-1.1) PWd 1.10 cm (0.6-1.1) EF (Teich) 57.90% EPSs 1.22 cm FS 30.30% EDV (Teich) 88.60 mL TAPSE 3.00 (<1.7) ESV (Teich) 37.30 mL LV Diastology E Decel Time 257.00 (160-240 msec) E/A Ratio 1.17 MED E' 6.70 (< 7 cm/sec) MED A' 7.60 cm/s E'/MED E' Ratio 16.75 (>14) LAT E' 9.40 (<10 cm/sec) LAT A' 8.60 cm/s E/LAT E' Ratio 11.94 (>14) Aortic Valve LVOT Max 126.00 (70-110 cm/s) LVOT VTI 26.51 cm AoV Peak Vitor. 152.00 (50-130 cm/s) AO Peak GR. 9.30 mmHg AO Mean GR. 4.60 (<5 mmHg) AO VTI 33.31 (18-25 cm) FAHEEM (VTI) 2.60 (2.5-4.5 cm2) Mitral Valve MV A Velocity 96.00 (40-130 cm/s) E/A Ratio 1.17 MV Decel. Time 257.00 (160-240 ms) MV Mean Gr. 2.10 (<2mmHg) MV PHT 67.00 ms Pulmonary Valve PV Peak Velocity 90.00 (50-150 cm/s) Tricuspid Valve TR P. Velocity 186.00 cm/s RAP Estimate 10.00 mmHg RVSP 23.80 mmHg Left Ventricle Left atrium normal size, left ventricle is normal size, there is no concentric left ventricular hypertrophy, estimated ejection fraction 55% with no regional wall motion abnormality. Diastolic parameters are within normal range. Right Ventricle Right atrium and right ventricle are normal size and contractility. Aortic Valve Aortic valve is grossly normal, there is no aortic stenosis or aortic insufficiency. Mitral Valve Mitral valve is grossly normal, there is trace mitral regurgitation. Tricuspid Valve Tricuspid valve grossly normal, there is trace tricuspid regurgitation, tricuspid regurgitation jet velocity is inadequate for calculation of the right ventricular systolic pressure. Pulmonic Valve Pulmonic valve is poorly visualized. Great Vessels Aortic root is normal size. Inferior vena cava is normal size with normal inspiratory collapse. Pericardium No significant pericardial effusion noted. Conclusion 1. Normal left ventricular size, preserved left ventricular systolic function, estimated ejection fraction 55% with no regional wall motion abnormality, diastolic parameters are within normal range. 2. Trace mitral and tricuspid regurgitation. 3. No significant pericardial effusion. 4. Inferior vena cava normal size with normal spectral collapse. Electronically signed by : Tom Cano MD 07/22/2022 20:41:20
== END ==
PROVIDERS: PCP Family Medicine; Visit Provider Physician Assistant
DX: R06.02 Shortness of breath (principal); I73.9 Peripheral vascular disease, unspecified
CPT/HCPCS: 93306; 93923

== ENCOUNTER → 2022-07-26 09:01 | Outpatient (CLI) | payer MEDICARE, BC, SELFPAY | PROVIDERS: PCP Family Medicine; Visit Provider Physician Assistant | DX: K92.1 Melena (principal) ==

== ENCOUNTER → 2022-08-01 13:50 | Outpatient (CLI) | payer MEDICARE, BC, SELFPAY ==
[2022-08-01 14:28] LABS: Basophils # 0.1 K/mm3 (0-0.2); Basophils % 0.8 % (0.1-2.0); Eosinophils # 0.3 K/mm3 (0.0-0.4); Eosinophils % 4.9 % (0.1-12.0); Hematocrit 37.9 % (42.0-52.0); Hemoglobin 12.3 g/dL (14.1-18.0); Lymphocytes # 2.2 K/mm3 (0.7-4.5); Lymphocytes % 32.7 % (10-50); Mean Corpuscular HGB Conc 32.5 g/dL (31.8-35.4); Mean Corpuscular Hemoglobin 36.3 pg (27.0-31.2); Mean Corpuscular Volume 111.6 fl (80-94); Mean Platelet Volume 8.1 fl (7.4-10.4); Monocytes # 0.5 K/mm3 (0.1-1.0); Monocytes % 7.4 % (1.7-9.3); Neutrophils # 3.6 K/mm3 (1.8-7.8); Neutrophils % 54.3 % (37.0-80.0); Platelet Count 305 K/mm3 (142-424); Red Blood Count 3.39 M/mm3 (4.60-6.20); Red Cell Distribution Width 20.1 % (11.5-17.5); White Blood Count 6.6 K/mm3 (4.8-10.8)
[2022-08-01 15:11] LABS: Ferritin 110 ng/ml (17.9-464)
[2022-08-01 15:25] LABS: Vitamin B12 800 pg/mL (239-931)
[2022-08-01 15:34] LABS: Iron 73 ug/dL (49-181)
[2022-08-01 15:43] LABS: Total Iron Binding Capacity 293 ug/dL (261-462)
== END ==
PROVIDERS: Visit Provider Internal Medicine Medical Oncology
DX: D64.9 Anemia, unspecified (principal); E53.8 Deficiency of other specified B group vitamins
CPT/HCPCS: 36415; 82607; 82728; 83540; 83550; 85025

== ENCOUNTER → 2022-08-22 15:16 | Outpatient (CLI) | payer MEDICARE, BC, SELFPAY ==
[2022-08-22 15:44] LABS: Basophils # 0.1 K/mm3 (0-0.2); Eosinophils # 0.3 K/mm3 (0.0-0.4); Eosinophils % 4.4 % (0.1-12.0); Hemoglobin 14.4 g/dL (14.1-18.0); Lymphocytes # 2.5 K/mm3 (0.7-4.5); Mean Corpuscular HGB Conc 32.7 g/dL (31.8-35.4); Mean Corpuscular Hemoglobin 34.5 pg (27.0-31.2); Mean Corpuscular Volume 105.4 fl (80-94); Mean Platelet Volume 8.5 fl (7.4-10.4); Monocytes # 0.5 K/mm3 (0.1-1.0); Monocytes % 6.7 % (1.7-9.3); Neutrophils # 3.8 K/mm3 (1.8-7.8); Neutrophils % 52.9 % (37.0-80.0); Platelet Count 215 K/mm3 (142-424); Red Blood Count 4.17 M/mm3 (4.60-6.20); Red Cell Distribution Width 17.1 % (11.5-17.5); White Blood Count 7.2 K/mm3 (4.8-10.8)
[2022-08-22 16:59] LABS: Vitamin B12 787 pg/mL (239-931)
== END ==
PROVIDERS: PCP Family Medicine; Visit Provider Internal Medicine Medical Oncology
DX: D64.9 Anemia, unspecified (principal)
CPT/HCPCS: 36415; 82607; 85025

== ENCOUNTER 2022-10-29 12:26 | Day surgery (SDC) | payer MEDICARE, OTHER, SELFPAY ==
--- NOTE | 2022-10-29 12:53 | ECG_ITS ---
APPROVED REPORT Exam: Resting ECG HR:83 bpm ECG Measurements Heart Rate 83 AXES NJ 171 P 39 QRSd 94 QRS 75 QT 362 T 31 QTc 402 Conclusion SINUS RHYTHM WITH OCCASIONAL VENTRICULAR PREMATURE COMPLEXES BORDERLINE ECG UNCONFIRMED REPORT Electronically signed by : Junior Cárdenas MD 10/29/2022 22:14:12
[2022-10-29 13:05] VITALS: BP 158/60; PULSE 116; RESP 16; TEMP 36.5; O2SAT 97; BMI 26.6
--- NOTE | 2022-10-29 13:09 | EXP.ANES.CKL ---
[facility] Disclaimer: The information contained in this section may have been updated after the patient was seen, as this information can be updated by other users. Medical History Coronary stent patent History of anemia Hx of myocardial infarction Hyperlipidemia Neuropathy Psoriasis Surgical History Hx of tonsillectomy Family History Mother Family history of heart attack Sister Family history of pacemaker Social History Smoking Status: Former smoker alcohol intake: never substance use type: denies use current occupational status: retired Travel in the last 8 weeks: None household members: spouse housing: house current occupational exposures/hazards: No caffeine: No [facility] Anesthesia Checklist Patient Identification Patient Identification: Arm Band and Verbal (Name & ) Structural Data Admitted From: Home Planned Operative Procedure/s: EGD/Colonoscopy Consent for Planned Operative Procedure(s) Verified: Yes NPO Status Verified Time NPO: 00:00 Cardiovascular Assessment Heart Sounds: S1 & S2 Pulse Rhythm: Irregular Airway Assessment C-Spine Mobility Assessed: Yes TMJ Mobility Assessed: Yes Dentition: Edentulous Neurological Assessment Level of Consciousness: Awake Hx Seizures: No Numbness or tingling in extremities: No Anesthesia Plan Anesthesia Risk discussed: Yes Anesthesia Plan: Verified ASA Class: III Anesthesia Type: MAC
--- NOTE | 2022-10-29 13:26 | EXP.ANES.CKL ---
[facility] Disclaimer: The information contained in this section may have been updated after the patient was seen, as this information can be updated by other users. Medical History Coronary stent patent History of anemia Hx of myocardial infarction Hyperlipidemia Neuropathy Psoriasis Surgical History Hx of tonsillectomy Family History Mother Family history of heart attack Sister Family history of pacemaker Social History Smoking Status: Former smoker alcohol intake: never substance use type: denies use current occupational status: retired Travel in the last 8 weeks: None household members: spouse housing: house current occupational exposures/hazards: No caffeine: No [facility] Anesthesia Checklist Patient Identification Patient Identification: Arm Band Structural Data Admitted From: Home Planned Operative Procedure/s: EGD/Colonoscopy Consent for Planned Operative Procedure(s) Verified: Yes Verified Documents: Surgical Consent and History and Physical NPO Status Verified Time NPO: 00:00 Additional verifications Anesthesia Reactions: No Airway Assessment C-Spine Mobility Assessed: Yes TMJ Mobility Assessed: Yes Dentition: Good Dentition Neurological Assessment Level of Consciousness: Awake and Alert Anesthesia Plan Anesthesia Risk discussed: Yes Anesthesia Plan: Verified ASA Class: III Anesthesia Type: MAC
[2022-10-29 13:30] VITALS: O2SAT 97
[2022-10-29 14:15] VITALS: BP 91/56; PULSE 51; RESP 16; TEMP 36.3; O2SAT 95
--- NOTE | 2022-10-29 14:18 | HMH.SCOPE ---
Procedure: Date: 10/29/22 Patient Date of :: 1955 Procedure Performed:: Esophagogastroduodenoscopy with biopsy Colonoscopy with polypectomy Indications:: Anemia Performing Provider:: Te Goddard MD Referring Provider:: . Sedation:: Monitored anesthesia care Procedure:: After informed consent was obtained the patient was taken to the endoscopy suite. Sedation ensued after the patient was transferred to the left lateral decubitus position. Pulse, blood pressure, and oxygen saturation were monitored throughout the procedure. The endoscope was advanced beyond the duodenal bulb. Retroflexion within the gastric lumen was accomplished. The gastroscope was carefully removed. Digital rectal exam revealed no significant abnormality. The colonoscope was placed in position. The entire colon was evaluated. The colonoscope was carefully removed and the patient was transferred to recovery in stable condition. Please see findings and specimens below for detail. Findings:: Gastroesophageal junction at 41 cm Patchy gastritis Tiny distal gastric body ulcer with no sign of recent/active hemorrhage Bowel preparation poor Fairly significant lack of relaxation Mild hemorrhoidal cushions Distal transverse colon polyp Polyp at 15 cm Scattered rectosigmoid hyperplastic-appearing polyps Specimens:: Antral biopsy Sessile distal transverse colon polyp (cold snare) Partially-pedunculated polyp at 15 cm (hot snare) Recommendations:: Timing of repeat colonoscopy is pending pathology will likely be between 1-2 years with extended bowel preparation. Evaluation with regard to anemia will be ongoing (likely UGI/SBFT and capsule endoscopy). Complications:: No immediate Estimated blood obtained (mL): 1
[2022-10-29 14:25] VITALS: BP 104/68; PULSE 62; RESP 16; O2SAT 96
[2022-10-29 14:35] VITALS: BP 114/72; PULSE 66; RESP 16; O2SAT 97
[2022-10-29 14:55] VITALS: BP 114/72; PULSE 66; RESP 16; O2SAT 97
== END 2022-10-29 14:55 | disposition home or self-care (01) ==
PROVIDERS: PCP Family Medicine; Visit Provider Surgery
PROC: 0DJ08ZZ Inspection of Upper Intestinal Tract, Via Natural or Artificial Opening Endoscopic (ICD-10-PCS; CPT 43235; principal; 2022-09-24 12:30)
DX: Z12.11 Encounter for screening for malignant neoplasm of colon (principal); D64.9 Anemia, unspecified; D12.3 Benign neoplasm of transverse colon; Z79.899 Other long term (current) drug therapy
CPT/HCPCS: 43239; 45385; 88305; 93005; J2704

== ENCOUNTER → 2022-11-06 14:55 | Outpatient (CLI) | payer MEDICARE, SELFPAY ==
[2022-11-06 15:18] LABS: Hematocrit 47.2 % (42.0-52.0); Hemoglobin 15.4 g/dL (14.1-18.0)
== END ==
PROVIDERS: PCP Family Medicine; Visit Provider Surgery
DX: D64.9 Anemia, unspecified (principal)
CPT/HCPCS: 85014; 85018

== ENCOUNTER → 2022-11-13 07:51 | Outpatient (CLI) | payer MEDICARE, SELFPAY | PROVIDERS: PCP Family Medicine; Visit Provider Surgery | DX: R13.10 Dysphagia, unspecified (principal) ==

== ENCOUNTER 2025-08-06 22:59 | Emergency (ER) | payer MEDICARE, BC, SELFPAY ==
--- OUTSIDE RECORDS SUMMARY | 2024-12-29 07:00 | XMS_ITS ---
[facility] [address] [place] [id number] Care Team Providers Care Radio Repairer Domestic Name Role Phone Chencho Clarke Primary Care Provider Allergies No Known Allergies REASON FOR VISIT POSS FLU Encounters Encounter Location Date Provider [facility] [address] [facility] [address] [place] [id number] 12/29/2024 Chencho Clarke Plan Of Treatment No Information Progress Notes * BENI COSTELLOOB: [birth year] (69 yo M)Acc No.[id number]:12/29/2024 Progress Notes Patient: BENI MENG Provider: Scotty Clarke M.D. :1955 A ge:69 Y S ex:Male Date:12/29/2024 Address:[id number] Subjective: * Chief Complaints: * 1 . POSS FLU. * ROS: D ERMATOLOGY: no R michelle. n o H ramesh. G ASTROENTEROLOGY: no N ausea. n o V omiting. U ROLOGY: no D ifficulty urinating. n o B lood in urine. * Medical History: C oronary Artery Disease, Myocardial Infarction, 1991 & 2006, Hyperlipidemia, Cervical Disc Disease, RT Distal Fibula Fracture 10/2015, 20 pack year smoking history, quit in 1996, Peripheral Vascular Disease, S/P Intervention [address] Ramey. * Surgical History: D irectional Atherectomy LT Ascending 1991, Coronary Artery Stent 1996, Face Neuralgia , cervical spine diskectomy and fusion 2008, LT Leg Vascular Procedure 12/2017, RT Leg - Directional Atherectomy 04/2018. * Hospitalization/Major Diagno stic Procedure: H eart Attack 07/24-. * Family History: F ather: , DM, heart disease. M other: , DM, heart disease. M aternal Grand Father: DM, heart disease. M aternal Grand Mother: DM,heart disease. 3 sister(s) - healthy. 3 daughter(s) - healthy. . * Social History: C URRENT TOBACCO USE S moking Status: Patient does NOT smoke. C affeine: no. Exercise: no. Home smoke detector use: yes. Marital Status: Single. New since last visit: none. Occupation: yes. Past smoking status: no. Occup. exposure: none. Recreational drug use: no. Alcohol: no. Sexually active: no.. Travel ouside [place]: no. * Allergies: N .K.D.A. Objective: * Vitals: Assessment: Plan: * Treatment: * Images: Billing Information: * Visit Code: * Procedure Codes: * Electronic signature of Shanell Clarke MD on 08/06/2025 at 11:12 PM EDT Sign off status: Pending * Provider: Scotty Clarke M.D. Date: 0 12/29/2024 Generated for Parminder burgos/Sherley/Simaitting on: 0 08/06/2025 11:12 PM EDT
--- OUTSIDE RECORDS SUMMARY | 2025-03-14 09:30 | XMS_ITS ---
Author Organization [facility] Address [address] [facility] [address] [facility] [address] [place] [phone] Care Team Providers Care Bag Bleacher Name Role Phone Chencho Clarke Primary Care Provider Allergies No Known Allergies REASON FOR VISIT CDL Vital Signs Weight 200.4 lbs 03/14/2025 Height 69.5 in 03/14/2025 BMI 29.17 kg/m2 03/14/2025 Encounters Encounter Location Date Provider Diagnosis [facility] [address] [facility] [address] [place] [id number] 03/14/2025 Chencho Clarke Plan Of Treatment No Information Progress Notes * BENI COSTELLOOB: [birth year] (69 yo M)Acc No.[id number]:03/14/2025 Physical Patient: BENI MENG Provider: Scotty Clarke M.D. :1955 A ge:69 Y S ex:Male Date:03/14/2025 Address:[id number] Subjective: * Chief Complaints: * 1 . CDL. * HPI: H PI: 69 year old male presents with c/o Patient is here today for?CDL physical. * ROS: D ERMATOLOGY: no R michelle. [...] * Allergies: N .K.D.A. Objective: * Vitals: W t:200.4, Temp:00.0, Nurse:armond, Ht: 69.5, BMI:29.17. Assessment: Plan: * Treatment: * Images: Billing Information: * Visit Code: * Procedure Codes: * Electronic signature of Shanell Clarke MD on 08/06/2025 at 11:11 PM EDT Sign off status: Pending * Provider: Scotty Clarke M.D. Date: 0 03/14/2025 Generated for Parminder burgos/Sherley/Tyra on: 0 08/06/2025 11:11 PM EDT History and Physical Notes * HPI (History of Present Illness) Category Sub-Category Detail Notes Category Not es HPI Patient is here today for CDL physical
--- OUTSIDE RECORDS SUMMARY | 2025-04-22 06:30 | XMS_ITS ---
Author Organization Jessica Address [address] [place] [phone] Care Team Providers Care Hot Water Heater Installer Name Role Phone Chencho Clarke Primary Care Provider Allergies No Known Allergies REASON FOR VISIT refills Medications Medication SIG (Take, Route, Frequency, Duration) Notes Start Date End Date Status Aspirin Adult Low Dose 81 MG 1 tab(s) orally once a day Active metFORMIN HCl ER 500 MG 2 tablets with e vening meal Orally Once a day; Duration: 90 days 04/22/2025 Active Rosuvastatin Calcium 20 MG TAKE 1 TABLET BY MOUTH AT BEDTIME Orally Once a day; Duration: 90 days Active Xarelto 2.5 MG 1 tablet Orally Two times a day; Duration: 90 days Active Problems Problem Type SNOMED Code ICD Code Onset Dates Problem Status W/U Status Risk Notes Problem Type II diabetes mellitus without complication ([id number]) Type 2 diabetes mellitus without complication, without long-term current use of insulin (E11.9) Active confirmed Vital Signs Weight 196 lbs 04/22/2025 Blood pressure systolic 124 mm Hg 04/22/20 25 Blood pressure diastolic 80 mm Hg 025 Heart Rate 75 /min 04/22/2025 Height 69.5 in 04/22/2025 BMI 28.53 kg/m2 04/22/2025 Encounters Encounter Location Date Provider Diagnosis [facility] [address] [place] [id number] 04/22/2025 Chencho Clarke Coronary artery dise ase involving [place] coronary artery of [place] heart without angina pectoris I25.10 ; Hyperlipidemia, unspecified hyperlipidemia type E78.5 ; Type 2 diabetes mellitus without complication, without long-term current use of insulin E11.9 ; Vitamin B 12 deficiency E53.8 and BMI 28.0-28.9,adult Z68.28 Assessments Encounter Date Diagnosis (ICD Code) Assessment Notes Treatment Notes Treatment Clinical Notes Section Notes 04/22/2025 Coronary artery disease involving [place] coronary artery of [place] heart without angina pectoris (ICD-10 - I25.10) 04/22/2025 Hyperlipidemia, unspecified hyperlipidemia type (ICD-10 - E78.5) 04/22/2025 Type 2 diabetes mellitus without complication, without long-term current use of insulin (ICD-10 - E11.9) New diagnosis today 04/22/2025 Vitamin B 12 deficiency (ICD-10 - E53.8) 04/22/2025 BMI 28.0-28.9,adult (ICD-10 - Z68.28) Plan Of Treatment Medication Medication Name Sig Start Date Stop Date Notes metFORMIN HCl ER 500 MG 2 tablets with e vening meal Orally Once a day; Duration: 90 days 04/22/2025 Rosuvastatin Calcium 20 MG TAKE 1 TABLET BY MOUTH AT BEDTIME Orally Once a day; Duration: 90 days Xarelto 2.5 MG 1 tablet Orally Two times a day; Duration: 90 days Treatment Notes Assessment Notes Type 2 diabetes mellitus wit hout complication, without long-term current use of insulin New diagnosis today Next Appt Details Follow Up: 3 Months, Reason: Medications Administered Medication Instructions Date of Administration Dosage Notes B-12 04/22/2025 1 mL Progress Notes * BENI COSTELLO JessikaOB: [birth year] (69 yo M)Acc No.[id number]:04/22/2025 Progress Notes Patient: BENI MENG Provider: Scotty Clarke M.D. :1955 A ge:69 Y S ex:Male Date:04/22/2025 Address:[id number] Subjective: * Chief Complaints: * 1 . Refills. * HPI: H PI: 69 year old male presents with c/o Patient is here today for?refills and B12 injection. * ROS: D ERMATOLOGY: no R michelle. [...] active: no.. Travel ouside [place]: no. * Medications: T aking Xarelto 2.5 MG Tablet 1 tablet Orally Two times a day , Taking Aspirin Adult Low Dose 81 MG Tablet Delayed Release 1 tab(s) orally once a day , Taking Rosuvastatin Calcium 20 MG Tablet TAKE 1 TABLET BY MOUTH AT BEDTIME * Allergies: N .K.D.A. Objective: * Vitals: W t: 196, Temp: 98.0, BP: 124/80, HR: 75, Nurse: armond, Ht: 69.5, BMI:28.53. * Examination: G eneral Examination: General Appearance: N AD. A 1c is 9 today. Assessment: * Assessment: 1. C oronary artery disease involving [place] coronary artery of [place] heart without angina pectoris - I25.10 (Primary) 2 . H yperlipidemia, unspecified hyperlipidemia type - E78.5 3 . T ype 2 diabetes mellitus without complication, without long-term current use of insulin - E11.9 4 . V itamin B 12 deficiency - E53.8 5 . B FL 28.0-28.9,adult - Z68.28 Plan: * Treatment: 2. H yperlipidemia, unspecified hyperlipidemia type Refill Rosuvastatin Calcium Tablet, 20 MG, TAKE 1 TABLET BY MOUTH AT BEDTIME, Orally, Once a day, 90 days, 90, Refills 1. 3. T ype 2 diabetes mellitus without complication, without long-term current use of insulin Start metFORMIN HCl ER Tablet Extended Release 24 Hour, 500 MG, 2 tablets with evening meal, Orally, Once a day, 90 days, 180 Tablet, Refills 0. Notes: New diagnosis today * Therapeutic Injections: B-12 : 1 mL (Route: Intramuscular) given by Macrina Ballard on right deltoid (Vitamin B 12 deficiency) * Procedure Codes: G 2211 Complex e/[place], [address] ADMINISTRATION OF INJECTION, J3420 B-12, 1036F TOBACCO NON-USER, 3046F HEMOGLOBIN A1C LEVEL > 9.0%, G8420 BMI<30 AND >=22 CALC & DOCU, G8783 BP SCR PRFRM RCMDD DEFIND SCR INTVL, G8752 MOST RECENT SYSTOLIC BP < 140MM HG, G8754 MOST RECENT DIASTOLIC BP < 90MM HG * Follow Up: 3 Months * Images: Billing Information: * Visit Code: 76103 Office Visit, Est Pt., Level 3. Modifiers: 25 * Procedure Codes: G2211 Complex e/[place]. [address] ADMINISTRATION OF INJECTION. J3420 B-12. 1036F TOBACCO NON-USER. 3046F HEMOGLOBIN A1C LEVEL > 9.0%. G8420 BMI<30 AND >=22 CALC & DOCU. G8783 BP SCR PRFRM RCMDD DEFIND SCR INTVL. G8752 MOST RECENT SYSTOLIC BP < 140MM HG. G8754 MOST RECENT DIASTOLIC BP < 90MM HG. * Electronic signature of Shanell Clarke MD on 08/06/2025 at 11:12 PM EDT Sign off status: Pending * Provider: Scotty Clarke M.D. Date: 0 04/22/2025 Generated for Parminder burgos/Sherley/Juan Jsmitting on: 0 08/06/2025 11:12 PM EDT History and Physical Notes * HPI (History of Present Illness) Category Sub-Category Detail Notes Category Not es HPI Patient is here today for refills and B12 injection Examination Category Sub-Category Detail Notes Category Not es General Examination General Appearance: NAD A 1c is 9 today
--- OUTSIDE RECORDS SUMMARY | 2025-04-22 06:30 | XMS_ITS ---
Author Organization [facility] Address [address] [facility] [address] [place] [phone] Care Team Providers Care Vp Mobile Products Name Role Phone Chencho Clarke Primary Care Provider [phone] Allergies No Known Allergies Results Component Value Reference Range Notes Urinalysis - Inhouse Reviewed date:04/24/2025 02:50:00 PM Interpretation: Performing Lab: Notes/Report: Color/Clarity yellow/clear Leuk Neg Nitrite Neg Urobili 33 Protein Trace pH 5.5 Blood Neg Sp. Gr. 1.020 Ketone Trace Bili Neg Gluc 1+ Glucose (In-House) Reviewed date:04/24/2025 02:50:00 PM Interpretation: Performing Lab: Notes/Report: blood glucose 228 74 - 106 mg/dL Glycohemoglobin A1c (in hous e) Reviewed date:04/24/2025 02:50:00 PM Interpretation: Performing Lab: Notes/Report: glycohemoglobin 9.0% 5 - 6.5 % REASON FOR VISIT CDL Physical Medications Medication SIG (Take, Route, Frequency, Duration) Notes Start Date End Date Status Aspirin Adult Low Dose 81 MG 1 tab(s) orally once a day Active Xarelto 2.5 MG 1 tablet Orally Two times a day Active Rosuvastatin Calcium 20 MG TAKE 1 TABLET BY MOUTH AT BEDTIME; Duration: 30 Active Vital Signs Weight 196 lbs 04/22/2025 Blood pressure systolic 124 mm Hg 04/22/20 25 Blood pressure diastolic 80 mm Hg 025 Heart Rate 75 /min 04/22/2025 Height 69.5 in 04/22/2025 BMI 28.53 kg/m2 04/22/2025 Encounters Encounter Location Date Provider Diagnosis [facility] [address] [place] [phone] 04/22/2025 Chencho Clarke Encounter for Depart ment of Transportation (DOT) examination for [place] license Z02.4 Assessments Encounter Date Diagnosis (ICD Code) Assessment Notes Treatment Notes Treatment Clinical Notes Section Notes 04/22/2025 Encounter for Department of Transportation (DOT) examination for [place] license (ICD-10 - Z02.4) Plan Of Treatment Next Appt Details Follow Up: 3 Months, Reason: Progress Notes * BENI COSTELLOOB: [birth year] (69 yo M)Acc No.[id number]:04/22/2025 Physical Patient: BENI MENG Provider: Scotty Clarke M.D. :1955 A ge:69 Y S ex:Male Date:04/22/2025 Address:[address] [place], [place] [id number] Subjective: * Chief Complaints: * 1 . CDL Physical. * HPI: H PI: 69 year old [...] TAKE 1 TABLET BY MOUTH AT BEDTIME , Discontinued Cyanocobalamin 1000 MCG/ML Solution 1 mL Injection once monthly , Medication List reviewed and reconciled with the patient * Allergies: N .K.D.A. Objective: * Vitals: W t: 196, Temp: 98.0, BP: 124/80, HR: 75, Nurse: armond, Ht: 69.5, Visual Acuity: Left eye:20/20, Right eye:20/30, Both eyes:20/20, Color:Pass, Comments:With glasses, BMI:28.53. * Examination: G eneral Examination: General Appearance: N AD. H EENT: u nremarkable.?Oral cavity: n o lesions, mucosa moist and WNL, no erythema. N artur: s upple, no lymphadenopathy. C hest: n ormal shape and expansion. H eart: R SR. L ungs: c lear to auscultation. N eurologic Exam: I ntact, gait normal. S kin: n ormal, no rash. P eripheral pulses: n ormal (2+) bilaterally. E xtremities: n o leg edema. ? Assessment: * Assessment: 1. E ncounter for Department of Transportation (DOT) examination for [place] license - Z02.4 (Primary) Plan: * Treatment: Value Reference Range C olor/Clarity yellow/clear * L euk Neg * N itrite Neg * U robili 33 * P rotein Trace * p H 5.5 * B lood Neg * S p. Gr. 1.020 * K etone Trace * B rustam Neg * G meaghan 1+ * Macrina Ballard 04/22/2025 11:16: 40 AM EDT > Provider reviewed results while patient in office. ?LAB: Glucose (In-House) (Collection Date & Time - 04/22/2025)* Value Reference Range b lood glucose 228 74 - 106 mg/dL * Macrina Ballard 04/22/2025 12:13: 06 PM EDT > Provider reviewed results while patient in office. ?LAB: Glycohemoglobin A1c (in house) (Collection Date & Time - 04/22/2025)* Value Reference Range g lycohemoglobin 9.0% 5 - 6.5 % * Macrina Ballard 04/22/2025 12:13: 28 PM EDT > Provider reviewed results while patient in office. * Procedure Codes: 8 1002 Urinalysis, no micro, 10558 VISUAL ACUITY SCREEN, 44705 CAPILLARY BLOOD DRAW, 92174 GLYCATED HEMOGLOBIN TEST, Modifiers: QW , 97839 GLUCOSE TEST * Follow Up: 3 Months * Images: Billing Information: * Visit Code: 58855 Preventive Care Est Pt. Age 65 and over. * Procedure Codes: 06938 Urinalysis, no micro. 94682 VISUAL ACUITY SCREEN. 11363 CAPILLARY BLOOD DRAW. 21217 GLYCATED HEMOGLOBIN TEST. Modifiers: QW 82376 GLUCOSE TEST. * Electronic signature of Shanell Clarke MD on 08/06/2025 at 11:12 PM EDT Sign off status: Pending * Provider: Scotty Clarke M.D. Date: 0 04/22/2025 Generated for Parminder burgos/Sherley/Juan Jsmitting on: 0 08/06/2025 11:12 PM EDT History and Physical Notes * HPI (History of Present Illness) Category Sub-Category Detail Notes Category Not es HPI Patient is here today for CDL physical Examination Category Sub-Category Detail Notes Category Not es General Examination HEENT: unremarkable Heart: RSR Lungs: clear to auscultatio n Extremities: no leg edema General Appearance: NAD Skin: normal, no rash Neurologic Exam: Intact, gait normal Neck: supple, no lymphaden opathy Oral cavity: no lesions, mucosa m oist and WNL, no erythema Peripheral pulses: normal (2+) bilatera lly Chest: normal shape and exp ansion
--- OUTSIDE RECORDS SUMMARY | 2025-07-21 06:00 | XMS_ITS ---
Author Organization [facility] Address [address] [facility] [address] [place] [id number] Care Team Providers Care Stage Director Name Role Phone Chencho Clarke Primary Care Provider Allergies No Known Allergies Results Component Value Reference Range Notes Glucose (In-House) Reviewed date:07/21/2025 09:56:44 AM Interpretation: Performing Lab: Notes/Report: blood glucose 121 74 - 106 mg/dL Glycohemoglobin A1c (in hous e) Reviewed date:07/21/2025 09:56:28 AM Interpretation: Performing Lab: Notes/Report: glycohemoglobin 6.7% 5 - 6.5 % REASON FOR VISIT check up and blood work Medications Medication SIG (Take, Route, Frequency, Duration) Notes Start Date End Date Status Pioglitazone HCl 15 MG 1 tablet Orally O nce a day; Duration: 90 days 07/24/2025 Active Rosuvastatin Calcium 20 MG TAKE 1 TABLET BY MOUTH AT BEDTIME Orally Once a day; Duration: 90 days Active Xarelto 2.5 MG 1 tablet Orally Two times a day; Duration: 90 days Active Aspirin Adult Low Dose 81 MG 1 tab(s) orally once a day Active Vital Signs Weight 186 lbs 07/21/2025 Blood pressure systolic 120 mm Hg 07/21/20 25 Blood pressure diastolic 70 mm Hg 025 Heart Rate 72 /min 07/21/2025 Height 69.5 in 07/21/2025 BMI 27.07 kg/m2 07/21/2025 Encounters Encounter Location Date Provider Diagnosis [facility] [address] [facility] [address] [place] [phone] 07/21/2025 Chencho Clarke Type 2 diabetes mellitus without complication, without long-term current use of insulin E11.9 and BMI 27.0-27.9,adult Z68.27 Assessments Encounter Date Diagnosis (ICD Code) Assessment Notes Treatment Notes Treatment Clinical Notes Section Notes 07/21/2025 Type 2 diabetes mellitus without complication, without long-term current use of insulin (ICD-10 - E11.9) 07/21/2025 BMI 27.0-27.9,adult (ICD-10 - Z68.27) Plan Of Treatment Medication Medication Name Sig Start Date Stop Date Notes Pioglitazone HCl 15 MG 1 tablet Orally O nce a day; Duration: 90 days 07/24/2025 metFORMIN HCl ER 500 MG 2 tablets with e vening meal Orally Once a day 04/22/2025 Next Appt Details Follow Up: 6 Months, Reason: Progress Notes * TRANG BENI RosenOB: [birth year] (69 yo M)Acc No.[id number]:07/21/2025 Progress Notes Patient: BENI MENG Provider: Scotty Clarke M.D. :1955 A ge:69 Y S ex:Male Date:07/21/2025 Address:[place], [id number] Subjective: * Chief Complaints: * 1 . Check up and blood work. * HPI: C ardiology: 69 year old male presents with c/o Hyperlipidemia P t states he has no new concerns at this time. Pt is fasting today. Pt states after being put on Metformin he has been constipated and unable to go to the bathroom. * ROS: D ERMATOLOGY: no R michelle. [...] Vascular Disease, S/P Intervention [address] Ramey, type 2 diabetes, Dx: 2024. * Surgical History: D irectional Atherectomy LT [...] . * Social History: C URRENT TOBACCO USE: No S moking Status: Patient does NOT smoke. C affeine: no. Exercise: no. Home smoke detector use: yes. Marital Status: Single. New since last visit: none. Occupation: yes. Past smoking status: no. Occup. exposure: none. Recreational drug use: no. Alcohol: no. Sexually active: no.. Travel ouside [place]: no. * Medications: T aking Aspirin Adult Low Dose 81 MG Tablet Delayed Release 1 tab(s) orally once a day , Taking Xarelto 2.5 MG Tablet 1 tablet Orally Two times a day , Taking Rosuvastatin Calcium 20 MG Tablet TAKE 1 TABLET BY MOUTH AT BEDTIME Orally Once a day , Taking metFORMIN HCl ER 500 MG Tablet Extended Release 24 Hour 2 tablets with evening meal Orally Once a day , Medication List reviewed and reconciled with the patient * Allergies: N .K.D.A. Objective: * Vitals: W t: 186, Temp: 97.8, BP: 120/70, HR: 72, Nurse: SF, Ht: 69.5, BMI:27.07. * Examination: G eneral Examination: General Appearance: N AD. H eart: R SR. L ungs:?clear to auscultation. Assessment: * Assessment: 1. T ype 2 diabetes mellitus without complication, without long-term current use of insulin - E11.9 (Primary) 2 . B MN 27.0-27.9,adult - Z68.27 Plan: * Treatment: Value Reference Range b lood glucose 121 74 - 106 mg/dL * Macrina Ballard 07/21/2025 09:29: 45 AM EDT > Provider reviewed results while patient in office. ?LAB: Glycohemoglobin A1c (in house) (Collection Date & Time - 07/21/2025)* Value Reference Range g lycohemoglobin 6.7% 5 - 6.5 % * Macrina Ballard 07/21/2025 09:56: 20 AM EDT > Provider reviewed results while patient in office. * Procedure Codes: G 2211 Complex e/[place], [address] GLUCOSE TEST, 20156 CAPILLARY BLOOD DRAW, 18901 GLYCATED HEMOGLOBIN TEST, Modifiers: QW , 3044F HG A1C LEVEL LT 7.0%, 1036F TOBACCO NON-USER, G8783 BP SCR PRFRM RCMDD DEFIND SCR INTVL, G8752 MOST RECENT SYSTOLIC BP < 140MM HG, G8754 MOST RECENT DIASTOLIC BP < 90MM HG, 3074F SYST BP LT 130 MM HG, 3078F DIAST BP < 80 MM HG, G8420 BMI<30 AND >=22 CALC & DOCU * Follow Up: 6 Months * Images: Billing Information: * Visit Code: 76146 Office Visit, Est Pt., Level 3. * Procedure Codes: G2211 Complex e/[place]. [address] GLUCOSE TEST. 64912 CAPILLARY BLOOD DRAW. 84254 GLYCATED HEMOGLOBIN TEST. Modifiers: QW 3044F HG A1C LEVEL LT 7.0%. 1036F TOBACCO NON-USER. G8783 BP SCR PRFRM RCMDD DEFIND SCR INTVL. G8752 MOST RECENT SYSTOLIC BP < 140MM HG. G8754 MOST RECENT DIASTOLIC BP < 90MM HG. 3074F SYST BP LT 130 MM HG. 3078F DIAST BP < 80 MM HG. G8420 BMI<30 AND >=22 CALC & DOCU. * Electronic signature of Shanell Clarke MD on 08/06/2025 at 11:11 PM EDT Sign off status: Pending * Provider: Scotty Clarke M.D. Date: 0 07/21/2025 Generated for Parminder burgos/Sherley/Simaitting on: 0 08/06/2025 11:11 PM EDT History and Physical Notes * HPI (History of Present Illness) Category Sub-Category Detail Notes Category Not es Cardiology Hyperlipidemia Pt states he has no new concerns at this time. Pt is fasting today. Pt states after being put on Metformin he has been constipated and unable to go to the bathroom Examination Category Sub-Category Detail Notes Category Not es General Examination Heart: RSR Lungs: clear to auscultatio n General Appearance: NAD
--- NOTE | 2025-08-06 23:10 | ED_ITS ---
Discharge Plan Disposition Patient Disposition: Home, Self-Care Prescriptions Prescriptions: No Action Xarelto 2.5 mg tablet 2.5 mg PO DAILY mecobalamin (vitamin B12) 1,000 mcg tablet,chewable 1,000 mcg PO DAILY aspirin [Aspir-81] 81 MG tablet,delayed release (DR/EC) 81 mg PO DAILY rosuvastatin [Crestor] 20 MG tablet 20 mg PO DAILY Referrals Follow up/Referrals: Chencho Clarke MD [Primary Care Provider, Medical] - See instructions Mani Swan DO [Staff Physician, Orthopedics] - See instructions Activity Restrictions/Add. Instructions Additional Instructions/Restrictions: Please remain nonweightbearing of the left upper extremity and use the sling. P lease follow-up with our orthopedist Dr. Swan for further assessment. Clinical Impressions Clinical Impression: Closed dislocation of left shoulder Qualifiers: Encounter type: initial encounter Qualified Code(s): S43.005A - Unspecified dislocation of left shoulder joint, initial encounter Instructions Patient Instructions: DI for Moderate Sedation Print Language Print Language: Vietnamese Discharge ED Provider: Scott Villalta General Adult HPI General Chief complaint: Extremity Injury, Upper Stated complaint: AO Fall 08/06/25 2200; Hit head and Issue L arm Time Seen by Provider: 08/06/25 23:10 History of Present Illness HPI narrative: 69-year-old male with history of coronary artery disease presents after a fall. He reports that he tripped and fell on his deck and has severe left arm pain. He denies hitting his head or loss of consciousness. Reports he takes aspirin daily. Denies any other injuries. Related Data Home Medications ?Medication ?Instructions ?Recorded ?Confirmed aspirin 81 mg tablet,delayed 81 mg PO DAILY HEART HEAL TH 04/12/18 11/11/22 release (Aspir-) rosuvastatin 20 mg tablet (Crestor) 20 mg PO DAILY Cho lesterol 04/12/18 11/11/22 mecobalamin (vitamin B12) 1,000 1,000 mcg PO DAILY Sup plement 08/01/22 11/11/22 mcg chewable tablet rivaroxaban 2.5 mg tablet (Xarelto) 2.5 mg PO DAILY Bl ood thinner 08/01/22 11/11/22 Allergies Allergy/AdvReac Type Severity Reaction Status Date / Time No Known Allergies Allergy Unverified 11/11/22 12:45 [facility] Disclaimer: The information contained in this section may have been updated after the patient was seen, as this information can be updated by other users. Medical History Coronary stent patent History of anemia Hx of myocardial infarction x2 Hyperlipidemia Neuropathy Psoriasis Surgical History History of colonoscopy History of esophagogastroduodenoscopy (EGD) Hx of tonsillectomy Family History Mother Family history of heart attack Sister Family history of pacemaker Social History Smoking Status: Current every day smoker tobacco type: cigarettes and smokeless tobacco alcohol intake: never substance use type: denies use current occupational status: retired Travel in the last 8 weeks?: None household members: spouse housing: house current occupational exposures/hazards: No caffeine: No Have you lived/traveled outside US in past 30 days?: No Contact w/someone who lives/traveled outside US past 30 days?: No Exposure to someone with infectious disease in past 14 days?: No Do you have a fever (greater than 100.4 F or 38 C)?: No Have you tested positive for COVID-19?: No Exposed to someone with COVID-19 in past 14 days?: No Do you have a sore throat?: No Do you have a cough?: No Do you have any weakness?: No Do you have any diarrhea?: No Are you experiencing any unusual bleeding?: No Do you have any muscle aches/pain?: No Do you have any abdominal pain?: No Are you experiencing loss of taste or smell?: No Other Medical History Have you received the Flu Vaccine for this season: No Have you received the Pneumonia Vaccine: No ROS Obtained: Yes All systems reviewed & no additional complaints except as documented Physical Exam General General appearance: alert and in no apparent distress Head Head exam: atraumatic and normocephalic Eye Eye exam: Present normal appearance, PERRL and EOMI ENT ENT exam: Present normal oropharynx and normal external ear exam Neck Neck exam: Present normal inspection and full ROM Chest Chest inspection: Present normal inspection and symmetric chest wall rise; Absent tenderness Respiratory Respiratory exam: Present normal lung sounds bilaterally; Absent respiratory distress Cardiovascular Cardiovascular exam: Present regular rate and normal rhythm Abdominal Exam Abdominal exam: Present soft; Absent distention, tenderness or guarding Extremities Exam Extremities exam: Present other (Deformity of the left shoulder consistent with dislocation. No other significant tenderness or injury on exam of the extremities. Intact neurovascular status.) Back Exam Back exam: Present normal inspection; Absent tenderness Neurological Exam Neurological exam: Present alert and oriented X3; Absent motor sensory deficit Psychiatric Psychiatric exam: Present normal affect and normal mood Skin Skin exam: Present warm, dry and normal color Lymphatic Lymphatic Findings: no adenopathy Medical Decision Making Medical Records Medical records reviewed: Yes I reviewed the patient's medical records. Screening: Per USPSTF and CDC recommendations, given the prevalence of disease in our region, it is our hospital?s policy to screen for HIV and viral Hepatitis for all patients aged 18 and over and those with ongoing risk factors. Jose Inquiry Pt receiving controlled substance: No Jose was queried for this patient: No Vital Signs: 08/06/25 23:21 08/07/25 00:03 08/07/25 00:06 Temperature 98.4 F Temperature Source Oral Pulse Rate 47 L Pulse Rate [Right] 63 50 L Respiratory Rate 16 15 Blood Pressure 167/74 H Blood Pressure [Right Arm] 114/73 167/74 H Blood Pressure Mean 105 Blood Pressure Mean [Right Arm] 86 105 02 Sat by Pulse Oximetry 97 96 96 Oxygen Delivery Method Room Air Nasal Cannula Oxygen Flow Rate (LPM) 2 08/07/25 00:09 08/07/25 00:12 08/07/25 00:19 Temperature Temperature Source Pulse Rate 126 H 99 H Pulse Rate [Right] 105 H Respiratory Rate 18 17 13 Blood Pressure 139/95 H 139/95 H Blood Pressure [Right Arm] 122/89 Blood Pressure Mean 101 Blood Pressure Mean [Right Arm] 100 02 Sat by Pulse Oximetry 96 96 98 Oxygen Delivery Method Nasal Cannula Nasal Cannula Oxygen Flow Rate (LPM) 3 2 08/07/25 00:20 08/07/25 00:25 08/07/25 00:26 Temperature Temperature Source Pulse Rate 75 Pulse Rate [Right] 103 H 97 H Respiratory Rate 11 L 17 14 Blood Pressure 135/75 Blood Pressure [Right Arm] 135/75 135/75 Blood Pressure Mean 99 Blood Pressure Mean [Right Arm] 95 95 02 Sat by Pulse Oximetry 97 100 99 Oxygen Delivery Method Room Air Room Air Oxygen Flow Rate (LPM) 08/07/25 00:52 Temperature 98.6 F Temperature Source Oral Pulse Rate 74 Pulse Rate [Right] Respiratory Rate 12 Blood Pressure 119/68 Blood Pressure [Right Arm] Blood Pressure Mean Blood Pressure Mean [Right Arm] 02 Sat by Pulse Oximetry Oxygen Delivery Method Room Air Oxygen Flow Rate (LPM) Lab Data Lab results reviewed: Yes I reviewed the patient's lab results. Orders (Tests/Meds): ED MEDICATIONS Discontinued Medications Generic Name Dose Route Start Last Admin Trade Name Chuck PRN Reason Stop Dose Admin Fentanyl Citrate 75 mcg 08/06/25 23:15 08/06/25 23:33 Fentanyl 100mcg/2ml Vial IV 08/06/25 23:16 75 mcg ONCE ONE Administration Ondansetron HCl 4 mg 08/06/25 23:47 08/07/25 00:03 Ondansetron 4mg/2ml Vial IV 08/06/25 23:48 4 mg ONCE ONE Administration Propofol 50 mg 08/07/25 00:07 08/07/25 00:31 Propofol 10mg/Ml 20ml Vial IV 08/07/25 00:08 50 mg ONCE ONE Administration ORDERS Category Date Time Status CT head/brain wo con Stat Cat Scan 08/06/25 23:23 Completed Chest XR -- portable [XR chest portable] Stat Exams 08/06/25 23:23 Completed Humerus XR left [XR humerus LT] Stat Exams 08/06/25 23:14 Completed Shoulder XR left minimum 2 views [XR shoulder LT min 2V Exams 08/06/25 23:14 Completed ] Stat Shoulder XR left minimum 2 views [XR shoulder LT min 2V Exams 08/07/25 00:13 Completed ] Stat Medical Decision Narrative: 69-year-old male with a history of coronary artery disease presents after a fall with left shoulder pain, patient is on aspirin. History was obtained via interactive discussion with patient, family, chart review. On arrival, patient is [afebrile, hemodynamically stable, satting appropriately, alert, oriented x4, GCS 15], moving all extremities spontaneously. Full physical exam performed and significant for findings consistent with left shoulder dislocation, no other traumatic findings noted. Differential includes but is not limited to intracranial trauma to thoracic trauma intra-abdominal trauma spine trauma extremity trauma. Patient was given fentanyl and Zofran for pain control. CT of the head was ordered as well as radiographs of the left shoulder, humerus and chest. Imaging independently interpreted by me and significant for no evidence of intracranial bleeding. Shoulder dislocation noted without acute fracture. See radiology read for full review of final results. Consent was obtained for procedural sedation. Patient was given 50 of propofol and left shoulder was successfully reduced on repeat imaging. Given patient history, exam and workup, patient's presentation most likely represents acute shoulder dislocation. Patient was given a sling and discharged with instructions to follow-up with our orthopedist Dr. Swan. Return precautions given.. Procedures Risk/Benefits of Procedure(s) Were Explained: Yes Orthopedic Joint Reduction Joint #1: Time Out Performed: Yes Side: left Joint Reduction Location: shoulder Analgesia: procedural sedation Shoulder Technique Used (if applicable): traction/counter-traction and external rotation Post-reduction neuro exam: intact and no change Post-reduction vascular: intact and no change Post Reduction X-Ray Obtained: Yes Post Reduction X-Ray Results: reduced Splint Applied: Yes Patient Tolerated Procedure: well and no complications Procedural Sedation A heart and lung assessment was performed on this patient at: 00:01 Mallampati Score:: Class II Indication: fracture/dislocation reduction ASA Class: II IV Propofol dose (mg): 50 Patient Tolerated Procedure: well and no complications Complications: none Critical Care Critical Care Time Critical Care Time: No
--- OUTSIDE RECORDS SUMMARY | 2025-08-06 23:12 | XMS_ITS | Patient Health Record ---
[facility] [address] [place] [id number] Care Team Providers Care Manager Bank Name Role Phone Chencho Clarke Primary Care Provider [phone] Allergies No Known Allergies Results Component Value Reference Range Notes Glucose (In-House) Reviewed date:07/21/2025 09:56:44 AM Interpretation: Performing Lab: Notes/Report: blood glucose 121 74 - 106 mg/dL Glycohemoglobin A1c (in hous e) Reviewed date:07/21/2025 09:56:28 AM Interpretation: Performing Lab: Notes/Report: glycohemoglobin 6.7% 5 - 6.5 % P-Vitamin B12 Reviewed date:10/18/2024 09:10:54 AM Interpretation: Normal Performing Lab: Notes/Report: CLIA: [id number] Luis Butler MD, [employer] [address] [place] [address] [place] [address] Test performed by [facility] Vitamin B12 789 695-1594 pg/mL P-PSA Reviewed date:10/18/2024 09:10:54 AM Interpretation: Normal Performing Lab: Notes/Report: Test performed by [facility] [address] [place] [address] [place] [address] Luis Btuler MD, [employer] CLIA: [id number] PSA 0.85 <4.00 ng/mL Please note this is an ultrasensitive PSA assay with a lower limit of detection of 0.014 ng/mL. This test is performed by the [employer] ECLIA methodology. Values obtained with different assay methods or kits cannot be directly compared. P-TSH reflex to FT4 Reviewed date:10/18/2024 09:10:54 AM Interpretation: Normal Performing Lab: Notes/Report: Test performed by [facility] [address] [place] , [place] [address] Luis Butler MD, [employer] Worker CLIA: [id number] TSH reflex to FT4 3.09 0.43-5.25 mU/L P-Lipid Panel Reviewed date:10/18/2024 09:10:54 AM Interpretation:hdl 34 Performing Lab: Notes/Report: Test performed by [facility] [address] [place] [address], [place] [address] Luis Butler MD, [employer] CLIA: [id number] Cholesterol 114 <200 mg/dL Triglycerides 125 <150 mg/dL HDL Cholesterol 34 >39 mg/dL Cholesterol / HDL Ratio 3.35 0.00-4.99 Ratio Non-HDL Cholesterol 80 <130 mg/dL LDL Cholesterol (Calculation) 55 <130 mg/dL LDL Cholesterol Levels* Less than 100 mg/dL Optimal 100 to 129 mg/dL Near Optimal/ Above Optimal 130 to 159 mg/dL Borderline High 160 to 189 mg/dL High 190 mg/dL and above Very High * Categories as recommended by the 2004 ATPIII guidelines LDL/HDL Ratio 1.6 <3.3 Ratio LDL Cholesterol Patient History Test Date: 10/15/2024 LDL Results: 55 Units: mg/dL % Change: - P-Comprehensive Metabolic Pa joyce (CMP) Reviewed date:10/18/2024 09:10:54 AM Interpretation:gluc 187 Performing Lab: Notes/Report: Test performed by [facility] [address] [place] [address] , [address], [place] [address] Luis Butler MD, [employer] Worker CLIA: [id number] Sodium 137 135-145 mmol/L Potassium 4.5 3.5-5.3 mmol/L Chloride 101 97-108 mmol/L CO2 25 22-32 mmol/L Glucose 187 65-99 mg/dL BUN 13 8-23 mg/dL Creatinine 1.24 0.70-1.30 mg/dL Calcium 9.4 8.6-10.4 mg/dL eGFR by Creatinine 64 >59 mL/min/1.73m2 Protein 7.7 6.0-8.3 g/dL Albumin 4.4 3.5-5.3 g/dL Alkaline Phosphatase 77 40-129 IU/L ALT (SGPT) 42 <5-55 IU/L AST (SGOT) 41 <5-46 IU/L Bilirubin, Total 0.6 <0.2-1.2 mg/dL A/G Ratio 1.3 1.1-2.5 Urinalysis - Inhouse Reviewed date:04/24/2025 02:50:00 PM [...] Notes/Report: glycohemoglobin 9.0% 5 - 6.5 % Medications Medication SIG (Take, Route, Frequency, Duration) Notes Start Date End Date Status Rosuvastatin Calcium 20 MG 1 tablet at b edtime Orally Once a day; Duration: 90 days Active Pioglitazone HCl 15 MG 1 tablet Orally O nce a day; Duration: 90 days 07/24/2025 Active Xarelto 2.5 MG 1 tablet Orally Two times a day; Duration: 90 days Active Aspirin Adult Low Dose 81 MG 1 tab(s) orally once a day Active Immunizations Vaccine Route Administration Date Status Comme nts Hepatitis B (20 and more) Unknown 12/12/1999 Administer ed Hepatitis B (20 and more) Unknown 01/16/2000 Administer ed Hepatitis B (20 and more) Unknown 08/20/2000 Administer ed Fluzone PF Quad (6-35 months) Unknown 11/17/2019 Admini stered COVID 19 Pfizer Unknown 01/26/2021 Administered COVID 19 Pfizer Unknown 03/02/2021 Administered COVID 19 Pfizer Unknown 10/19/2021 Administered Problems Problem Type SNOMED Code ICD Code Onset Dates Problem Status W/U Status Risk Notes Problem Hearing loss (24640286) Hearing loss NOS (389.9) Active confirmed Problem Vitamin B12 deficiency (non anemic) (51635377) Vitamin B 12 deficiency (E53.8) Active confirmed Problem History of placement of stent for coronary artery disease (situation) (253185277) History of heart artery stent (Z95.5) Active confirmed Problem Thrombocytopenia (461542266) Thrombocytopenia (D69.6) Active confirmed Problem Atherosclerotic heart disease of holy cross coronary artery without angina pectoris (128095159265831) Coronary artery disease involving holy cross coronary artery of holy cross heart without angina pectoris (I25.10) Active confirmed Problem Hyperlipidaemia (01207598) Hyperlipidemia, unspecified hyperlipidemia type (E78.5) Active confirmed Problem Type II diabetes mellitus without complication (341894924) Type 2 diabetes mellitus without complication, without long-term current use of insulin (E11.9) Active confirmed Problem Peripheral vascular disease (753282944) PAD (peripheral artery disease) (I73.9) Active confirmed Problem Neuropathic pain of both legs (G57.93) Active confirmed Vital Signs Heart Rate 72 /min 07/21/2025 Blood pressure diastolic 70 mm Hg 07/21/2025 Height 69.5 in 07/21/2025 Blood pressure systolic 120 mm Hg 07/21/2025 Weight 186 lbs 07/21/2025 BMI 27.07 kg/m2 07/21/2025 Encounters Encounter Location Date Provider Diagnosis [facility] [address] [facility] [address] [place] [id number] 08/10/2024 Chencho [place]waukee Vitamin B 12 deficie ncy E53.8 [facility] [address] [facility] [address] [place] [id number] 09/13/2024 Chencho [place] Vitamin B 12 deficie ncy E53.8 [facility] [address] [facility] [address] [place] [id number] 10/15/2024 Chencho [place] Trigger ring finger of right hand M65.341 ; Vitamin B 12 deficiency E53.8 ; Coronary artery disease involving holy cross coronary artery of holy cross heart without angina pectoris I25.10 ; Hyperlipidemia, unspecified hyperlipidemia type E78.5 and Prostate cancer screening Z12.5 [facility] [address] [place], [place] [id number] 12/15/2024 Chencho [place] Vitamin B 12 deficie ncy E53.[address] [facility] [address] [place], [place] [id number] 03/14/2025 Chencho [place] [facility] [address] [place], [place] [id number] 04/22/2025 Chencho [place] Encounter for Depart ment of Transportation (DOT) examination for [place] license Z02.[address] [facility] [address] [place] [id number] 04/22/2025 Chencho [place] Coronary artery dise ase involving holy cross coronary artery of holy cross heart without angina pectoris I25.10 ; Hyperlipidemia, unspecified hyperlipidemia type E78.5 ; Type 2 diabetes mellitus without complication, without long-term current use of insulin E11.9 ; Vitamin B 12 deficiency E53.8 and BMI 28.0-28.9,adult Z68.28 [facility] [address] [facility] [address] [place], [place] [id number] 07/21/2025 Chencho [place] Type 2 diabetes brittney itus without complication, without long-term current use of insulin E11.9 and BMI 27.0-27.9,adult Z68.27 [facility] [address] [place], [place] [id number] 09/13/2024 Chencho [place] Hyperlipidemia, unspecified hyperlipidemia type E78.5 [facility] [address] [place], [place] [id number] 10/18/2024 Chencho [place] [facility] [address] [place], [place] [id number] 10/20/2024 Chencho [place] [facility] [address] [place], [place] [id number] 12/17/2024 Chencho [place] Hyperlipidemia, unspecified hyperlipidemia type E78.5 [facility] [address] [place], [place] [id number] 04/26/2025 Chencho [place] [facility] [address] [place] [id number] 07/25/2025 Chencho [place] [facility] [address] [place], [place] [id number] 07/28/2025 Chencho [place] Hyperlipidemia, unspecified hyperlipidemia type E78.5 Assessments Encounter Date Diagnosis (ICD Code) Assessment Notes Treatment Notes Treatment Clinical Notes Section Notes 08/10/2024 Vitamin B 12 deficiency (ICD-10 - E53.8) 09/13/2024 Vitamin B 12 deficiency (ICD-10 - E53.8) 09/13/2024 Hyperlipidemia, unspecified hyperlipidemia type (ICD-10 - E78.5) 10/15/2024 Vitamin B 12 deficiency (ICD-10 - E53.8) 10/15/2024 Trigger ring finger of right hand (ICD-10 - M65.341) 12/15/2024 Vitamin B 12 deficiency (ICD-10 - E53.8) 12/17/2024 Hyperlipidemia, unspecified hyperlipidemia type (ICD-10 - E78.5) 04/22/2025 Encounter for Department of Transportation (DOT) examination for [place] license (ICD-10 - Z02.4) 04/22/2025 Coronary artery disease involving holy cross coronary artery of holy cross heart without angina pectoris (ICD-10 - I25.10) 04/22/2025 Hyperlipidemia, unspecified hyperlipidemia type (ICD-10 - E78.5) 07/21/2025 BMI 27.0-27.9,adult (ICD-10 - Z68.27) 07/21/2025 Type 2 diabetes mellitus without complication, without long-term current use of insulin (ICD-10 - E11.9) 07/28/2025 Hyperlipidemia, unspecified hyperlipidemia type (ICD-10 - E78.5) 04/22/2025 Type 2 diabetes mellitus without complication, without long-term current use of insulin (ICD-10 - E11.9) New diagnosis today 10/15/2024 Coronary artery disease involving holy cross coronary artery of [place] cross heart without angina pectoris (ICD-10 - I25.10) 10/15/2024 Hyperlipidemia, unspecified hyperlipidemia type (ICD-10 - E78.5) 04/22/2025 Vitamin B 12 deficiency (ICD-10 - E53.8) 10/15/2024 Prostate cancer screening (ICD-10 - Z12.5) 04/22/2025 BMI 28.0-28.9,adult (ICD-10 - Z68.28) Plan Of Treatment Pending Test Test Name Order Date H-Occult Blood, Stool 07/24/2022 Insurance Providers Payer Name Payer Address Payer Phone Subscriber Number Group Number Insured Name Patient Relationship to Insured Coverage Start Date Coverage End Date MEDICARE PART B [address] [address] [place] [id number] BENI COSTELLO Self - patient is the insured [facility] [address] [place] [address] [phone] [id number] BENI COSTELLO Self - patient is the insured Medications Administered Medication Instructions Date of Administration Dosage Notes B-12 07/25/2022 1 mL B-12 08/01/2022 1 mL B-12 08/26/2022 1 mL B-12 10/07/2022 1 mL B-12 11/08/2022 1 mL B-12 12/11/2022 1 mL B-12 01/20/2023 1 mL B-12 02/21/2023 1 mL B-12 04/18/2023 1 mL B-12 05/19/2023 1 mL B-12 06/17/2023 1 mL B-12 07/24/2023 1 mL B-12 09/12/2023 1 mL B-12 11/13/2023 1 mL B-12 02/13/2024 1 mL B-12 04/20/2024 1 mL B-12 04/20/2024 1 mL B-12 05/11/2024 1 mL B-12 08/10/2024 1 mL B-12 09/13/2024 1 mL B-12 10/15/2024 1 mL B-12 12/15/2024 1 mL B-12 04/22/2025 1 mL Medical (General) History Medical History History ICD Code Coronary Artery Disease Myocardial Infarction, 1991 & 2006 Hyperlipidemia Cervical Disc Disease RT Distal Fibula Fracture 10/2015 20 pack year smoking history, quit in Peripheral Vascular Disease, S/P Interve ntion [address] Ramey type 2 diabetes, Dx: 2024 Surgical History Surgery Date(Month/Year) Directional Atherectomy LT Ascending 199 2 Coronary Artery Stent 1996 Face Neuralgia cervical spine diskectomy and fusion 200 9 LT Leg Vascular Procedure 12/2017 RT Leg - Directional Atherectomy 04/2018 Hospitalization History Reason Date(Month/Year) Heart Attack 07/24-
--- OUTSIDE RECORDS SUMMARY | 2025-08-06 23:12 | XMS_ITS | Clinical Summary ---
Author Organization [facility] Address [address] [place] [address] Care Team Providers Care Institution Librarian Name Role Phone Chencho Clarke MD Primary Care Provider + [phone] Allergies No known active allergies Medications nitroglycerin (NITROLINGUAL) 0.4 MG/SPRAY spray Place 1 spray under the tongue Every 5 (Five) Minutes As Needed for Chest Pain. PT. STATED THAT HE HAS NEVER HAD TO TAKE THIS. Active aspirin 81 MG tablet Take 81 mg by mouth Daily. Active Multiple Vitamins-Minera ls (MULTIVITAMIN ADULTS 50+ PO) Take 1 tablet by mouth Every Morning. Active XARELTO 2.5 MG tablet Take 2.5 mg by mouth 2 (Two) Times a Day. 10/28/2018 Active rosuvastatin (CRESTOR) 20 MG tablet Take 1 tablet by mouth once daily 90 tablet 07/16/2022 Active Active Problems Problem Noted Date Diagnosed Date PVD (peripheral vascular disease) 02/18/2018 Abnormal ankle brachial index (LOI) 12/16/2017 Overview (12/16/2017): Added automatically from request for surgery [id number] Muscle cramp 11/19/2017 IHD (ischemic heart disease) 11/26/2016 Overview (11/26/2016): a. History of acute inferior myocardial infarction with symptoms of shortness of breath and severe chest pain, treated with Streptokinase/PTCA and stent placement to the RCA in December 1997. b. Left heart catheterization, 12/27/1999, revealing 40% LAD stenosis with an ejection fraction of greater than 60%. c. Acute inferior myocardial infarction, 07/24/2007, with placement of 1 stent to the RCA at [facility]; data deficient. d. Left heart catheterization, 11/17/2008, revealing nonobstructive disease which was diffusely present throughout. Patent right coronary stent. LVEF of 55%. Hypertension 11/26/2016 Dyslipidemia 11/26/2016 Overview (11/26/2016): 1. Dyslipidemia, HDL of 22, followed by PCP (patient had recent ankle fracture and was immobile). Tic douloureux 11/26/2016 CAD (coronary artery disease) 11/26/2016 Overview (11/26/2016): Coronary artery disease, currently stable without symptoms. Family History Medical History Relation Name Comments Heart disease Mother Mallika Costello Coronary artery disease Other FH Relation Name Status Comments Father Mother Mallika Costello Other FH Social History Tobacco Use Types Packs/Day Years Used Date Smoking Tobacco: Former Cigars Q uit: 11/10/2015 Smokeless Tobacco: Current Tobacco Cessation:Ready to Q uit: No; Counseling Given: No Alcohol Use Standard Drinks/Week Comments No 0 (1 standard drink = 0.6 oz pur e alcohol) Abuse Screen Answer Date Recorded Unsafe at Home or Work/School Not on file Feels Threatened by Someone? Not on file 07/2023 Does Anyone Keep You from Co ntacting Others or Doint Things Outside the Home? Not on file 08/18/2023 Physical Sign of Abuse Present Not on file 1 Housing Stability Answer Date Recorded Current Living Arrangements Not on file 07/2023 Potentially Unsafe Housing Conditions Not on yahaira e 08/18/2023 Family and Community Support Answer Tim e Recorded Help with Day-to-Day Activities Not on file 08/18/2023 Lonely or Isolated Not on file 08/18/2023 Employment Answer Date Recorded Do you want help finding or keeping work or a anthony b? Not on file 08/18/2023 Disabilities Answer Date Recorded Concentrating, Remembering, or Making Decisions Difficulty Not on file 08/18/2023 Doing Errands Independently Difficulty Not on fi le 08/18/2023 Education Answer Date Recorded Help with school or training? Not on file Preferred Language Not on file 08/18/2023 Sex and Gender Information Value Date Recorded Sex Assigned at Not on file Legal Sex Male 10:36 AM EDT Gender Identity Not on file Sexual Orientation Not on file Last Filed Vital Signs Vital Sign Reading Time Taken Comments Blood Pressure 108/66 02/05/2022 1:25 PM EDT Pulse 78 02/05/2022 1:25 PM EDT Temperature 36.2 C (97.2 F) 05/05/2018 6:20 AM EDT Respiratory Rate 16 05/05/2018 9:15 AM EDT Oxygen Saturation 98% 02/05/2022 1:25 PM EDT Inhaled Oxygen Concentration - - Weight 81.6 kg (180 lb) 08/14/2022 1:51 PM EDT Height 177.8 cm (5' 10 ) 08/14/2022 1:51 PM EDT Body Mass Index 25.83 08/14/2022 1:51 PM EDT Plan of Treatment Health Maintenance Due Date Last Done Comments TDAP/TD VACCINES (1 - Tdap) 1976 COLOGUARD 2002 COLON CANCER SCREENING 5 YEA R SIGMOIDOSCOPY 2002 COLONOSCOPY 2002 [address] CANCER SCREENING 2002 CT COLONOGRAPHY 2002 FECAL OCCULT BLOOD TEST 2002 FIT Testing (1 year) 2002 Pneumococcal Vaccine 50+ (1 of 1 - PCV) 2007 ZOSTER VACCINE (1 of 2) 2007 ANNUAL PHYSICAL 11/19/2017 HEPATITIS C SCREENING 11/19/2017 AAA SCREEN ONCE 2022 INFLUENZA VACCINE 06/10/2025 11/17/2019 COVID-19 Vaccine ( season) 2025 10/19/2021, 03/02/2021, 01/26/2021 Insurance [facility] MEDICARE A & B Care Teams Institution Librarian Relationship Specialty Start Date End Date Chencho Clarke MD [address] [facility] [address] [place] [id number] PCP - General 11/13/15
--- NOTE | 2025-08-06 23:14 | XR_ITS ---
PROCEDURE INFORMATION: Exam: XR Left Shoulder Exam date and time: 08/06/2025 11:36 PM Age: 69 years old Clinical indication: Injury or trauma; Fall; Other: Disformity; Additional info: Fall, deformity TECHNIQUE: Imaging protocol: Radiologic exam of the left shoulder. Views: 2 or more views. COMPARISON: CR XR HUMERUS LT 08/06/2025 11:36 PM FINDINGS: Bones/joints: There is complete anterior dislocation of the humeral head with respect of the bony glenoid. Moderate degenerative changes noted in the acromioclavicular joint. No acute fracture evident Soft tissues: Normal. IMPRESSION: Anterior glenohumeral dislocation
--- NOTE | 2025-08-06 23:14 | XR_ITS ---
PROCEDURE INFORMATION: Exam: XR Left Humerus Exam date and time: 08/06/2025 11:36 PM Age: 69 years old Clinical indication: Injury or trauma; Fall; Dislocation; Shoulder; Left; Additional info: Fall, shoulder deformity TECHNIQUE: Imaging protocol: Radiologic exam of the left humerus. Views: 2 or more views. COMPARISON: CR XR SHOULDER LT MIN 2V 08/06/2025 11:36 PM FINDINGS: Bones/joints: There is complete anterior dislocation of the humeral head with respect of the bony glenoid. Moderate degenerative changes noted in the acromioclavicular joint. No acute fracture evident Soft tissues: Normal. IMPRESSION: Anterior glenohumeral dislocation
[2025-08-06 23:21] VITALS: BP 114/73; PULSE 63; RESP 16; TEMP 36.9; O2SAT 97; BMI 26.4
--- NOTE | 2025-08-06 23:23 | CT_ITS ---
PROCEDURE INFORMATION: Exam: CT Head Without Contrast Exam date and time: 08/06/2025 11:47 PM Age: 69 years old Clinical indication: Injury or trauma; Other: Fall on asprin; Additional info: Fall on aspirin TECHNIQUE: Imaging protocol: Computed tomography of the head without contrast. Radiation optimization: All CT scans at this facility use at least one of these dose optimization techniques: automated exposure control; mA and/or kV adjustment per patient size (includes targeted exams where dose is matched to clinical indication); or iterative reconstruction. COMPARISON: No relevant prior studies available. FINDINGS: Brain: Stable encephalomalacia in the right cerebellum. No intracranial mass, hemorrhage or evidence of acute ischemia. Cerebral ventricles: No ventriculomegaly. Paranasal sinuses: Visualized sinuses are unremarkable. No fluid levels. Mastoid air cells: Visualized mastoid air cells are well aerated. Bones: Evidence of prior right occipital craniotomy again noted. Soft tissues: Unremarkable. IMPRESSION: No acute intracranial abnormality
--- NOTE | 2025-08-06 23:23 | XR_ITS ---
PROCEDURE INFORMATION: Exam: XR Chest Exam date and time: 08/06/2025 11:36 PM Age: 69 years old Clinical indication: Injury or trauma; Fall; Other: Visible disformity TECHNIQUE: Imaging protocol: Radiologic exam of the chest. Views: 1 view. COMPARISON: CR XR HUMERUS LT 08/06/2025 11:36 PM FINDINGS: Lungs: Unremarkable. No consolidation. Pleural spaces: Unremarkable. No pleural effusion. No pneumothorax. Heart/Mediastinum: Unremarkable. No cardiomegaly. Bones/joints: Findings left glenohumeral dislocation noted. Moderate degenerative changes in the spine. Orthopedic plate noted in the lower cervical spine. IMPRESSION: Glenohumeral dislocation of the left shoulder. No acute cardiopulmonary pathology evident.
[2025-08-06] MEDS: FENTANYL 100MCG/2ML VIAL 75 MCG IV (23:33)
[2025-08-07] VITALS (9 sets, daily range): BP systolic 119–167; BP diastolic 68–95; PULSE 47–126; RESP 11–18; TEMP 37; O2SAT 96–100
[2025-08-07] MEDS: ONDANSETRON 4MG/2ML VIAL 4 MG IV (00:03)
--- NOTE | 2025-08-07 00:13 | XR_ITS ---
PROCEDURE INFORMATION: Exam: XR Left Shoulder Exam date and time: 08/07/2025 12:27 AM Age: 69 years old Clinical indication: Condition or disease; Other: Post reduction TECHNIQUE: Imaging protocol: Radiologic exam of the left shoulder. Views: 2 or more views. COMPARISON: CR XR SHOULDER LT MIN 2V 08/06/2025 11:36 PM FINDINGS: Bones/joints: There has been interval reduction of previously described glenohumeral dislocation. Osseous alignment now appears normal. No acute fracture evident. Moderate degenerative changes of the AC joint noted Soft tissues: Normal. IMPRESSION: Interval reduction of the glenohumeral dislocation. No evidence of acute fracture.
== END 2025-08-07 00:54 | disposition home or self-care (01) ==
PROVIDERS: Emergency Provider Emergency Medicine; PCP Family Medicine
DX: S43.005A Unspecified dislocation of left shoulder joint, initial encounter (principal); M79.602 Pain in left arm; W01.10XA Fall on same level from slipping, tripping and stumbling with subsequent striking against unspecified object, initial encounter
CPT/HCPCS: 23650; 23655; 70450; 71045; 73030; 73060; 96374; 96375; 99152; 99285; J2405; J2704; J3010